=== PATIENT | female | born 1950 | race Caucasian/White ===

== ENCOUNTER → 2017-03-16 | Outpatient (CLI) | payer MEDICARE ==
--- NOTE | 2017-03-18 14:07 | XR ---
EXAMINATION TYPE: XR knee complete bilateral DATE OF EXAM: 03/16/2017 11:21 AM COMPARISON: NONE HISTORY: Chronic pain TECHNIQUE: Four views are submitted. FINDINGS: Severe neck narrowing of the medial compartment and patellofemoral compartment of the left knee. No e rosive changes. No acute fracture or dislocation. There is moderate to severe narrowing the medial compartment and patellofemoral compartment of the ri ght knee. No erosive changes. Osseous structures intact. IMPRESSION: 1. Severe bilateral osteoarthritis.
== END | disposition home or self-care (01) ==
LOC: RADXRYALE 10:15
PROVIDERS: ATTEND Family Medicine
DX: M17.0 Bilateral primary osteoarthritis of knee (principal)

== ENCOUNTER → 2017-05-20 | Outpatient (CLI) | payer MEDICARE ==
--- NOTE | 2017-05-20 13:10 | MM ---
Reason for exam: screening (asymptomatic). Last mammogram was performed 1 year ago. History: Patient is postmenopausal and has history of breast cancer at age 61. Family history of breast cancer in paternal grandmother and breast cancer in maternal cousin. Malignant left breast needle localization of the left breast, June 30, 2011. Malignant left mammotome panel of the left breast, June 17, 2011. Radiation therapy of the left breast, 2010. Benign stereotactic core biopsy of the left breast, February 29, 2004. Core biopsy of the left breast. Took estrogen for 5 years beginning at age 36. Physical Findings: A clinical breast exam by your physician is recommended on an annual basis and results should be correlated with mammographic findings. MG 3D Diag Mammo W/Cad CHANDA Bilateral CC and MLO view(s) were taken. LM and XCCL view(s) were taken of the left breast. Prior study comparison: May 19, 2016, bilateral MG diagnostic mammo w CAD CHANDA. May 16, 2015, bilateral MG diagnostic mammo w CAD CHANDA. Previous mammotome biopsy in the left breast. Post surgical distortion in the left breast. No significant new findings when compared with previous films. These results were verbally communicated with the patient and result sheet given to the patient on 05/20/17. ASSESSMENT: Benign, BI-RAD 2 RECOMMENDATION: Routine screening mammogram of both breasts in 1 year. Manage patient on a clinical basis.
== END | disposition home or self-care (01) ==
LOC: RADMAMWWP 10:51
PROVIDERS: ATTEND Surgery
DX: Z08 Encounter for follow-up examination after completed treatment for malignant neoplasm (principal); Z85.3 Personal history of malignant neoplasm of breast
CPT/HCPCS: G0204; G0279

== ENCOUNTER → 2017-07-01 | Outpatient (CLI) | payer MEDICARE ==
--- NOTE | 2017-07-01 13:01 | CT ---
EXAMINATION TYPE: CT ChestAbdPelvis w con DATE OF EXAM: 07/01/2017 COMPARISON: NONE HISTORY: breast ca CT DLP: 2083 mGycm. Automated Exposure Control for Dose Reduction was Utilized. CONTRAST: CT scan of the thorax, abdomen and pelvis is performed with IV Contrast, patient injected with 80 mL of Visipaque 320. FINDINGS: LUNGS: Scarlike opacity in the lingula measuring 11 x 5 mm favors postinflammatory scar related to [facility] cancer treatment. A few scattered micronodules are felt present, for reference 3 mm nodule pos terior lateral right lung base on axial image 52. For reference there is 4 mm nodule right lower lobe on axial image 45. No definitive greater than 5 mm parenchymal nodules or masses are present bilater ally. There is no pleural effusion or pneumothorax seen. The tracheobronchial tree is patent. MEDIASTINUM: There are no greater than 1 cm hilar or mediastinal lymph nodes. No cardiomegaly or pe ricardial effusion is seen. There are 2 small subcentimeter rim calcified nodules in the right thyro id isthmus. OTHER: Postsurgical change to left breast is present with oval thin-walled fluid collection favoring seroma measuring 3.8 cm on long axis on coronal image 37. Artifact related to patient's body habitus is noted over the lower abdomen and pelvis. LIVER/GB: Gallbladder is surgically absent. PANCREAS: No significant abnormality is seen. SPLEEN: Some splenules are seen in splenic hilum. ADRENALS: No significant abnormality is seen. KIDNEYS: Some cortical thinning in both kidneys is seen consistent with product of chronic medical re nal disease. BOWEL: Some diverticula are seen in the sigmoid colon. There is no convincing CT evidence for acute d iverticulitis. GENITAL ORGANS: Uterus is surgically absent or markedly atrophic in appearance. LYMPH NODES: No greater than 1cm abdominal or pelvic lymph nodes are appreciated. OSSEOUS STRUCTURES: There is some multilevel spurring in the thoracic spine. There is disc space narr owing with vacuum disc phenomenon lumbosacral junction. Facet arthropathy lower lumbar levels is seen . OTHER: No significant additional abnormality is seen. IMPRESSION: No convincing evidence of residual or metastatic malignancy. Scattered pulmonary micronod ules noted bilaterally measuring up to 4 mm in size can be followed to definitively exclude.
--- NOTE | 2017-07-01 15:45 | NM ---
EXAMINATION TYPE: NM bone scan whole body DATE OF EXAM: 07/01/2017 COMPARISON: CT scan 07/01/2017 HISTORY: Breast cancer Delayed whole-body scanning was performed following the injection of 26.8 mCi Tc 99m MDP. Images acq uired 3.5 hours post injection. FINDINGS: Abnormal uptake involving the feet, knees, shoulders suggestive of post arthritic changes. Areas of abnormal uptake involving the thoracic spine appears to be mild intensity likely degenerativ e. Abnormal uptake involving the sternoclavicular joints appears post arthritic. IMPRESSION: No diagnostic evidence of metastases.
== END | disposition home or self-care (01) ==
LOC: RADNMMAIN 10:35
PROVIDERS: ATTEND Internal Medicine Hematology & Oncology
DX: C50.012 Malignant neoplasm of nipple and areola, left female breast (principal); R91.8 Other nonspecific abnormal finding of lung field
CPT/HCPCS: 82565; 84520; 71260; 74177; 36415; 78306; A9503; Q9967

== ENCOUNTER → 2018-03-17 | Outpatient (CLI) | payer MEDICARE ==
--- NOTE | 2018-03-17 12:54 | CT ---
EXAMINATION TYPE: CT ChestAbdPelvis wo con DATE OF EXAM: 03/17/2018 INDICATION: Follow up breast cancer COMPARISON: 07/01/2017 CT DLP: 2136.4 mGycm CONTRAST: Performed with Oral Contrast. Patient's laboratory results were abnormal and intravenous contrast was not utilized. TECHNIQUE: Axial images at 5 mm thick sections. Reconstructed images in the coronal plane. Delayed images through the kidneys. FINDINGS: CT CHEST: Portion of the thyroid visualized is normal. Some minimal streak atelectasis is within the lingula. This could be postradiation treatment. Couple of punctate densities measuring 0.2-0.3 cm within the anterior right middle lobe. Series 4 image 35. There may be some subtle tiny scattered nodules within the periphery of the lungs bilaterally. Findin gs were present previously. No enlarged mediastinal or hilar adenopathy is evident. The ascending aorta diameter at the level of the main pulmonary artery is 3.2 cm. The main pulmonary artery diameter at the bifurcation is 2.7 cm. A small hiatal hernia is present. Postsurgical changes within the left breast and a seroma are presen t. CT ABDOMEN: Liver: Normal Spleen: Normal Pancreas: Normal Adrenal glands: The adrenal glands are normal. Gallbladder: Normal Kidneys: No masses are evident. No hydronephrosis is present. No cysts are present. Delayed images were obtained through the kidneys, which remain unremarkable. Aorta: Vascular calcification is within the aorta. Inferior vena cava: Normal. CT PELVIS: Loops of bowel within the abdomen and pelvis are normal. There are loops of bowel which are incom pletely distended or lack oral contrast limiting their evaluation. A few scattered diverticuli are pr esent Appendix: Not visualized. Clinical management is recommended. Urinary bladder: Normal. Genitourinary structures: Uterus and ovaries are not identified. Osseous structures: No suspicious lytic or sclerotic lesions. IMPRESSIONS: 1. Tiny nodules present previously and appears stable. 2. No suspicious changes to suggest metastatic disease. 3. Mild diverticulosis without acute diverticulitis. 4. Small hiatal hernia. 5. Postsurgical changes left breast
--- NOTE | 2018-03-17 14:43 | NM ---
EXAMINATION TYPE: NM bone scan whole body DATE OF EXAM: 03/17/2018 COMPARISON: Prior nuclear medicine exam 07/01/2017, CT scan 03/17/2018 HISTORY: Breast carcinoma Delayed whole-body scanning was performed following the injection of 25.0 mCi Tc 99m MDP. Images acq uired 4 hours post injection. FINDINGS: The appearance is similar to prior exam. Soft tissue uptake in the legs may be due to chronic venous stasis change or cellulitis. Degenerative changes are again seen throughout the skeleton. No areas of abnormal increased or decreased reaffirms aquatic to suggest metastasis. IMPRESSION: Stable exam. Metastatic disease is not evident.
== END | disposition home or self-care (01) ==
LOC: RADNMMAIN 09:32
PROVIDERS: ATTEND Internal Medicine Hematology & Oncology
DX: C50.012 Malignant neoplasm of nipple and areola, left female breast (principal); K57.90 Diverticulosis of intestine, part unspecified, without perforation or abscess without bleeding; K44.9 Diaphragmatic hernia without obstruction or gangrene; Z88.2 Allergy status to sulfonamides; Z98.890 Other specified postprocedural states
CPT/HCPCS: 82565; 84520; 71250; 74176; 36415; 78306; A9503

== ENCOUNTER → 2018-06-15 | Outpatient (CLI) | payer MEDICARE ==
--- NOTE | 2018-06-15 15:18 | USB ---
Reason for exam: clinical finding. History: Patient is postmenopausal and has history of breast cancer at age 61. Family history of breast cancer in paternal grandmother and breast cancer in maternal cousin. Malignant left breast needle localization of the left breast, June 30, 2011. Malignant left mammotome panel of the left breast, June 17, 2011. Radiation therapy of the left breast, 2010. Benign stereotactic core biopsy of the left breast, February 29, 2004. Core biopsy of the left breast. Took estrogen for 5 years beginning at age 36. Indicated problem(s): palpable abnormality and lump or thickening in the left breast. Physical Findings: Nurse Summary: raised rash on left inner quadrant (nurse dw). US Breast LT Left complete breast ultrasound includes all four quadrants, the retroareolar region and axilla. Finding demonstrates a hypoechoic lesion within area of scar at 3 o'clock and a 1.3 x 0.5 x 0.4cm hypoechoic lesion at 4 o'clock, taller than wide, suspicious. Recurrance at scar versus only scar tissue cannot be differentiated on this ultrasound. These results were verbally communicated with the patient and result sheet given to the patient on 06/15/18. ASSESSMENT: Suspicious, BI-RAD 4 RECOMMENDATION: Ultrasound core biopsy of the left breast. (consider biopsy at 4 o'clock) Manage on a clinical basis with regard to scar, consider MRI. Called Dr. Sawant's office with mammographic findings and office will call patient when Dr. Sawant is back in the office next week. PRELIMINARY REPORT CALLED AND FAXED TO DR. SAWANT ON 06/15/18.
== END | disposition home or self-care (01) ==
LOC: RADUSWWP 13:59
PROVIDERS: ATTEND Internal Medicine Hematology & Oncology
DX: N64.52 Nipple discharge (principal); N63.20 Unspecified lump in the left breast, unspecified quadrant; Z85.3 Personal history of malignant neoplasm of breast

== ENCOUNTER → 2018-06-23 | Outpatient (CLI) | payer MEDICARE ==
--- NOTE | 2018-06-23 14:02 | MM ---
Reason for exam: additional evaluation requested from prior study. Last mammogram was performed 1 year and 1 month ago. History: Patient is postmenopausal and has history of breast cancer at age 61. Family history of breast cancer in paternal grandmother and breast cancer in maternal cousin. Malignant left breast needle localization of the left breast, June 30, 2011. Malignant left mammotome panel of the left breast, June 17, 2011. Radiation therapy of the left breast, 2010. Benign stereotactic core biopsy of the left breast, February 29, 2004. Core biopsy of the left breast. Took estrogen for 5 years beginning at age 36. Physical Findings: Nurse did not find any significant physical abnormalities on exam. MG 3D Diag Mammo W/Cad CHANDA Bilateral CC and MLO view(s) were taken. Prior study comparison: May 20, 2017, bilateral MG 3d diag mammo w/cad CHANDA. May 19, 2016, bilateral MG diagnostic mammo w CAD CHANDA. The breast tissue is heterogeneously dense. This may lower the sensitivity of mammography. Finding: There is a suspicious high spiculated 27 x 41 mm architectural distortion in the posterior position of the left breast on MLO view. Previous mammotome biopsy in the left breast. These results were verbally communicated with the patient and result sheet given to the patient on 06/23/18. ASSESSMENT: Suspicious, BI-RAD 4 RECOMMENDATION: Ultrasound core biopsy of the left breast. (4 o'clock) Called Dr. Castorena with mammographic findings and has scheduled an appointment for the patient for 06/27/18 at 10:00 with [facility]. PRELIMINARY REPORT CALLED AND FAXED TO DR. RUIZ ON 06/23/18. Breast MRI of the left breast. (consider)
== END | disposition home or self-care (01) ==
LOC: RADMAMWWP 08:57
PROVIDERS: ATTEND Family Medicine
DX: N63.0 Unspecified lump in unspecified breast (principal); Z85.3 Personal history of malignant neoplasm of breast
CPT/HCPCS: 77066; G0279; 77062

== ENCOUNTER 2018-10-10 12:30 | Inpatient (IN) | payer MEDICARE ==
[2018-10-11] MEDS ORDERED: ALBUTEROL NEBULIZED 2.5 MG/3 ML INHALATION PRN (11:31)
[2018-10-11] MEDS ORDERED: VANCOMYCIN IV PER PHARMACY 1 EACH MISC MISCELLANE PRN (11:41)
[2018-10-11] MEDS ORDERED: ATORVASTATIN 20 MG TAB PO SCH (11:45)
--- NOTE | 2018-10-11 11:52 | P.CONS ---
History of Present Illness - Reason for Consult Consult date: 10/11/18 Recurrent Metastatic Breast cancer, On Chemotherapy Requesting physician: Rhonda Whitten - Chief Complaint Cellulitis of Breast - History of Present Illness Ms. Shirley is a patient of primary Oncologist Dr. Gan for treatment and management of her recurrent Breast cancer. She is currently on treatment with Ibrance and Faslodex. She was seen in office yesterday for follow-up and was noted to have evidence of significant cellulitis and left chest wall infection, purulent drainage, low grade fevers, and reactive tachycardia. He therefore has asked for medical management to directly admit patient to hospital for further assessment, managment and IV antibiotics. Wound cultures have been ordered, baseline labs, home medications reconciled, Infectious disease has been consulted, and initial broad spectrum antibiotics intiated. Review of Systems A 14 point review of systems assessed and completed and all negative except HPI. Past Medical History Past Medical History: Asthma, Diabetes Mellitus, Hypertension History of Any Multi-Drug Resistant Organisms: None Reported Past Surgical History: Cholecystectomy, Hysterectomy Additional Past Surgical History / Comment(s): lumpectomy left breast, cancer. also had op surgery for deviated septum, right nare has mild problems. Past Anesthesia/Blood Transfusion Reactions: No Reported Reaction Past Psychological History: No Psychological Hx Reported Smoking Status: Never smoker Past Alcohol Use History: None Reported Past Drug Use History: None Reported Medications and Allergies Home Medications Medication Instructions Recorded Confirmed Type Albuterol Sulfate [Ventolin HFA] 1 - 2 puff INHALATION RT-Q6H PRN 04/08/1410/11 History Cholecalciferol [Vitamin D3] 1,000 unit PO W/LUNCH 04/08/14 10/11/18 History Famotidine [Pepcid] 20 mg PO DAILY 04/08/14 10/11/18 History Multivitamins, Thera [Multivitamin] 1 tab PO W/LUNCH 04/08/14 10/11/18 History metFORMIN HCL 500 mg PO BID 04/08/14 10/11/18 History Apixaban [Eliquis] 5 mg PO BID 10/11/18 10/11/18 History Atorvastatin [Lipitor] 20 mg PO SUTUTHFRSA 10/11/18 10/11/18 History Beclomethasone Dipropionate [Qvar 1 puff INHALATION RT-BID 10/11/18 10/11/18 History 40 mcg Redihaler] Citalopram Hydrobromide [CeleXA] 20 mg PO HS 10/11/18 10/11/18 History Levothyroxine Sodium [Synthroid] 50 mcg PO DAILY 10/11/18 10/11/18 History Lisinopril [Zestril] 20 mg PO HS 10/11/18 10/11/18 History Vitamin E (Dl,Tocopheryl Acet) 400 unit PO W/LUNCH 10/11/18 10/11/18 History [Vitamin E] Allergies Allergy/AdvReac Type Severity Reaction Status Date / Time sulfamethoxazole Allergy Intermediate Rash/Hives Verified 10/11/18 09:56 [From Bactrim] trimethoprim [From Bactrim] Allergy Intermediate Rash/Hives Verified 10/11/18 09 :56 ciprofloxacin [From Cipro] AdvReac CONSTIPATIO Verified 10/11/18 09:56 N Physical Exam Vitals: Vital Signs Temp Pulse Resp BP Pulse Ox 10/11/18 11:02 98.1 F 74 14 114/59 100 Intake and Output 10/10/18 10/11/18 10/11/18 22:59 06:59 14:59 Other: Voiding Method Toilet Weight 129.727 kg - Constitutional General appearance: average body habitus, cooperative, no acute distress - EENT Eyes: EOMI, dentition normal ENT: NA/AT, normal oropharynx - Neck supple, trachea midline, no cervical adenopathy Neck: normal ROM - Respiratory Respiratory: bilateral: diminished, wheezing (expiratory, mild increased effort) - Cardiovascular Rhythm: regular Heart sounds: normal: S1, S2 - Gastrointestinal General gastrointestinal: normal bowel sounds, soft, tenderness - Integumentary Chest wall Cellulitis with two open areas on breast with purulent drainage Integumentary: pale - Neurologic No focal Defects Neurologic: CNII-XII intact - Musculoskeletal Musculoskeletal: gait normal, generalized weakness, strength equal bilaterally - Psychiatric Psychiatric: A&O x's 3, appropriate affect, intact judgment & insight Assessment and Plan Plan: Assessment and Recommendations: 1. Recurrent Breast cancer on Ibrance and Faslodex: - Ibrance on Hold until after resolution of acute Hospitalization for Left chest Wall Cellulitis 2. Left chest Wall Cellulitis and open Wound: - Culture to be obtained from open wound - Iv Antibiotics to be iniated after culture obtained - Dr. Herbert From Infectious Disease to Consult for Evaluation and Management 3. 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 HX: Atrial Fibrillation: On Eliquis Home Midication Resumed DVT )on eliquis) and GI Prophylaxis ordered Medical Managment to Admit please per Dr. Elvia Marcelino BOOK [employer] S[employer] EDITOR
[2018-10-11] MEDS ORDERED: VANCOMYCIN 2,000 MG in SODIUM CHLORIDE 0.9% 500 ML 500 ML IVPB ONE (12:00)
[2018-10-11 12:13] LABS: Anisocytosis Slight; Basophils % (A) 1 %; Eosinophils % (A) 1 %; HCT 23.3 % (34.0-46.0); HGB 7.7 gm/dL (11.4-16.0); Lymphocytes # (A) 0.6 k/uL (1.0-4.8); Lymphocytes % (A) 18 %; MCH 34.5 pg (25.0-35.0); MCHC 33.2 g/dL (31.0-37.0); MCV 103.8 fL (80.0-100.0); Macrocytosis Moderate; Mean Platelet Volume 6.9; Monocytes # (A) 0.2 k/uL (0-1.0); Monocytes % (A) 4 %; Neutrophils # (A) 2.5 k/uL (1.3-7.7); Neutrophils % (A) 73 %; Platelet Count 428 k/uL (150-450); RBC 2.24 m/uL (3.80-5.40); RDW 16.2 % (11.5-15.5); WBC 3.4 k/uL (3.8-10.6)
[2018-10-11 13:04] LABS: Albumin 3.1 g/dL (3.5-5.0); Calcium 8.7 mg/dL (8.4-10.2); Magnesium 1.7 mg/dL (1.6-2.3); Potassium 4.6 mmol/L (3.5-5.1); Total Bilirubin 0.3 mg/dL (0.2-1.3); Total Protein 6.1 g/dL (6.3-8.2)
--- NOTE | 2018-10-11 13:08 | P.GSCN ---
History of Present Illness Consult date: 10/11/18 Reason for Consult: Infection left chest wall Requesting physician: Raoul Delcid History of present illness: The patient is a 68-year-old white female who underwent a limited left the mastectomy for recurrent malignancy of the left breast. He had had a lumpectomy the patient treatment and axillary node biopsy about 7-8 years ago. She developed diffuse lymphatic cutaneous metastatic disease involving the entire chest wall for which he received chemotherapy with the Marcaine improvement. She showed evidence on recent mammography to have a large tumor mass in the retroareolar region indicating recurrent malignancy confirmed on biopsy. Therefore left the palliative simple mastectomy was performed this being very difficult because of her obesity and the radiation treatment. She developed poor healing on the lateral aspect of the scar with intermittent serosanguineous drainage. When I saw her about 10 days ago in the office she had evidence of some mild cellulitis at the drainage site on the lateral aspect of the scar which was placed on Cipro twice a day. However after 1 or 2 doses she got constipated and she discontinued it unfortunately did not call the office for replacement the antibiotic. The cellulitis progressively worsened. She was seen by Dr. Gan yesterday and was admitted for further management. Apparently the drainage has been intermittently CO purulent in nature. She states she's had some chills. Past history family history social history well-documented on recent admission for her mastectomy. Has multiple medical issues including diabetes and obesity. On examination the patient is in no acute distress. Temperature is normal. Markedly overweight. Has a fair amount of induration at her mastectomy scar but no fluctuance or evidence of an abscess. Has open area about a centimeter on the lateral aspect of her mastectomy scar with a fair amount of induration and puckering of the skin and subcutaneous tissues. No gross abscess is noted but she has some mild cellulitis. Mild edema. Labs are pending. Impression cellulitis left mastectomy scar. Metastatic left breast cancer with recent recurrence. Multiple medical issues. Obesity. Recommendation. Agree with IV antibiotics. Mostly monitor. Hopefully will not need surgical drainage. Past Medical History Past Medical History: Asthma, Diabetes Mellitus, Hypertension Additional Past Medical History / Comment(s): 2010 L breast cancer with lumpectomy and radiation, August 2018 L breast cancer with mastectomy and oral chemo-wound never healed completely, recent constipation, diverticular disease, Afib RVR, NIDDM type II, CKD, bronchitis, lower extremity edema, artritis multiple joints. History of Any Multi-Drug Resistant Organisms: None Reported Past Surgical History: Cholecystectomy, Hysterectomy Additional Past Surgical History / Comment(s): lumpectomy left breast, cancer. also had op surgery for deviated septum, right nare has mild problems. Past Anesthesia/Blood Transfusion Reactions: No Reported Reaction Past Psychological History: No Psychological Hx Reported Smoking Status: Never smoker Past Alcohol Use History: None Reported Past Drug Use History: None Reported - Past Family History Father Family Medical History: Rheumatoid Arthritis (RA) Additional Family Medical History / Comment(s): Father at the age of 68yrs from a bleeding ulcer. Mother Family Medical History: Congestive Heart Failure (CHF) Additional Family Medical History / Comment(s): Mother at the age of 79yrs from CHF. Medications and Allergies Home Medications Medication Instructions Recorded Confirmed Type Albuterol Sulfate [Ventolin HFA] 1 - 2 puff INHALATION RT-Q6H PRN 04/08/1410/11 History Cholecalciferol [Vitamin D3] 1,000 unit PO W/LUNCH 04/08/14 10/11/18 History Famotidine [Pepcid] 20 mg PO DAILY 04/08/14 10/11/18 History Multivitamins, Thera [Multivitamin] 1 tab PO W/LUNCH 04/08/14 10/11/18 History metFORMIN HCL 500 mg PO BID 04/08/14 10/11/18 History Apixaban [Eliquis] 5 mg PO BID 10/11/18 10/11/18 History Atorvastatin [Lipitor] 20 mg PO SUTUTHFRSA 10/11/18 10/11/18 History Beclomethasone Dipropionate [Qvar 1 puff INHALATION RT-BID 10/11/18 10/11/18 History 40 mcg Redihaler] Citalopram Hydrobromide [CeleXA] 20 mg PO HS 10/11/18 10/11/18 History Levothyroxine Sodium [Synthroid] 50 mcg PO DAILY 10/11/18 10/11/18 History Lisinopril [Zestril] 20 mg PO HS 10/11/18 10/11/18 History Vitamin E (Dl,Tocopheryl Acet) 400 unit PO W/LUNCH 10/11/18 10/11/18 History [Vitamin E] Allergies Allergy/AdvReac Type Severity Reaction Status Date / Time sulfamethoxazole Allergy Intermediate Rash/Hives Verified 10/11/18 09:56 [From Bactrim] trimethoprim [From Bactrim] Allergy Intermediate Rash/Hives Verified 10/11/18 09 :56 ciprofloxacin [From Cipro] AdvReac CONSTIPATIO Verified 10/11/18 09:56 N Surgical - Exam Vital Signs Temp Pulse Resp BP Pulse Ox 98.1 F 74 14 114/59 100 10/11/18 11:02 10/11/18 11:02 10/11/18 11:02 10/11/18 11:02 10/11/18 11:02 Results - Labs 10/11/18 11:57 10/11/18 11:57 Abnormal Lab Results - Last 24 Hours (Table) 10/11/18 10/11/18 Range/Units 11:57 11:57 WBC 3.4 L (3.8-10.6) k/uL RBC 2.24 L (3.80-5.40) m/uL Hgb 7.7 L (11.4-16.0) gm/dL Hct 23.3 L (34.0-46.0) % MCV 103.8 H (80.0-100.0) fL RDW 16.2 H (11.5-15.5) % Lymphocytes # 0.6 L (1.0-4.8) k/uL Sodium 135 L (137-145) mmol/L BUN 27 H (7-17) mg/dL Creatinine 1.54 H (0.52-1.04) mg/dL Total Protein 6.1 L (6.3-8.2) g/dL Albumin 3.1 L (3.5-5.0) g/dL Diabetes panel 10/11/18 Range/Units 11:57 Sodium 135 L (137-145) mmol/L Potassium 4.6 (3.5-5.1) mmol/L Chloride 102 (98-107) mmol/L Carbon Dioxide 24 (22-30) mmol/L BUN 27 H (7-17) mg/dL Creatinine 1.54 H (0.52-1.04) mg/dL Glucose 98 (74-99) mg/dL Calcium 8.7 (8.4-10.2) mg/dL AST 20 (14-36) U/L ALT 29 (9-52) U/L Alkaline Phosphatase 125 (38-126) U/L Total Protein 6.1 L (6.3-8.2) g/dL Albumin 3.1 L (3.5-5.0) g/dL Calcium panel 10/11/18 Range/Units 11:57 Calcium 8.7 (8.4-10.2) mg/dL Albumin 3.1 L (3.5-5.0) g/dL Pituitary panel 10/11/18 Range/Units 11:57 Sodium 135 L (137-145) mmol/L Potassium 4.6 (3.5-5.1) mmol/L Chloride 102 (98-107) mmol/L Carbon Dioxide 24 (22-30) mmol/L BUN 27 H (7-17) mg/dL Creatinine 1.54 H (0.52-1.04) mg/dL Glucose 98 (74-99) mg/dL Calcium 8.7 (8.4-10.2) mg/dL Adrenal panel 10/11/18 Range/Units 11:57 Sodium 135 L (137-145) mmol/L Potassium 4.6 (3.5-5.1) mmol/L Chloride 102 (98-107) mmol/L Carbon Dioxide 24 (22-30) mmol/L BUN 27 H (7-17) mg/dL Creatinine 1.54 H (0.52-1.04) mg/dL Glucose 98 (74-99) mg/dL Calcium 8.7 (8.4-10.2) mg/dL Total Bilirubin 0.3 (0.2-1.3) mg/dL AST 20 (14-36) U/L ALT 29 (9-52) U/L Alkaline Phosphatase 125 (38-126) U/L Total Protein 6.1 L (6.3-8.2) g/dL Albumin 3.1 L (3.5-5.0) g/dL
[2018-10-11] MEDS: LEVOTHYROXINE 50 MCG TAB PO SCH (13:25)
[2018-10-11] MEDS: APIXABAN 5 MG TAB PO SCH ×2 (13:25→20:33)
[2018-10-11] MEDS: FAMOTIDINE 20 MG TAB PO SCH (13:26)
[2018-10-11] MEDS: VITAMIN E (DL,TOCOPHERYL ACET) 400 UNIT CAP PO SCH (13:38)
[2018-10-11] MEDS: MULTIVITAMINS, THERA 1 EACH TAB PO SCH (13:39)
[2018-10-11] MEDS: CHOLECALCIFEROL 1,000 UNIT TAB PO SCH (13:39)
[2018-10-11] MEDS ORDERED: ALPRAZolam 0.25 MG TAB PO PRN (17:13)
[2018-10-11] MEDS ORDERED: TEMAZEPAM 15 MG CAP PO PRN (17:13)
[2018-10-11] MEDS: CEFEPIME 2 GM in SODIUM CHLORIDE 0.9% 50 ML IVPB SCH (17:50)
[2018-10-11 17:55] LABS: Glucose,Whole Blood 112 mg/dL (75-99)
[2018-10-11] MEDS: INSULIN ASPART 100 UNIT/ML 1 ML 10 ML VIAL SQ SCH ×2 (17:55→20:32)
[2018-10-11] MEDS: metFORMIN 500 MG TAB PO SCH (17:56)
--- NOTE | 2018-10-11 17:58 | HP ---
HISTORY AND PHYSICAL DATE OF SERVICE: 10/11/2018 CHIEF COMPLAINTS: Pain and swelling of the left breast surgery area. HISTORY OF PRESENT ILLNESS: This 68-year-old woman with a past medical history of asthma, diabetes mellitus, hypertension, cholecystectomy, history of paroxysmal atrial fibrillation, being followed by Dr. Christofer Castorena in the outpatient setting, recently had a left mastectomy by Dr. Delcid for tumor recurrence. The patient previously had chemoradiation. Apparently the patient had cellulitis. Patient apparently was admitted to take Cipro, which the patient discontinued after 2 days because of constipation. Dr. Gan evaluated the patient and recommended the patient as a direct admission. There is no history of any fever, rigor or chills. No history of headache, loss of consciousness, seizures at this time. PAST MEDICAL HISTORY: 1. Asthma. 2. Diabetes mellitus. 3. Hypertension. 4. History of breast cancer. 5. Lumpectomy. 6. History of paroxysmal atrial fibrillation. HOME MEDICATIONS: 1. Albuterol 1-2 puffs q.6 p.r.n. 2. Qvar 40 mcg b.i.d. 3. Pepcid 20 mg daily. 4. Vitamin D3 1000 with lunch. 5. Vitamin E 400 units with lunch. 6. Lipitor 20 mg p.o. Wednesday, Wednesday, , Wednesday. 7. Celexa 20 mg p.o. at bedtime. 8. Zestril 20 mg p.o. at bedtime. 9. Multivitamins 1 p.o. daily. 10.Metformin 500 mg p.o. b.i.d. 11.Levothyroxine 50 mcg p.o. daily. 12.Eliquis 5 mg p.o. b.i.d. ALLERGIES: BACTRIM AND CIPRO. FAMILY HISTORY: History of rheumatoid arthritis in the family. SOCIAL HISTORY: No history of smoking. No history of alcohol intake. REVIEW OF SYSTEMS: ENT: No diminished hearing. No diminished vision. CARDIOVASCULAR SYSTEM: No angina, palpitations. RESPIRATORY SYSTEM: As mentioned earlier. GI: No nausea, vomiting. : No dysuria or retention. NERVOUS SYSTEM: No numbness, weakness. ALLERGY/IMMUNOLOGY: No asthma, hayfever. MUSCULOSKELETAL: As mentioned earlier. HEMATOLOGY/ONCOLOGY: As mentioned earlier. ENDOCRINE: As mentioned earlier. CONSTITUTIONAL: As mentioned earlier. DERMATOLOGY: As mentioned earlier. RHEUMATOLOGY: Negative. PSYCHIATRY: As mentioned earlier. PHYSICAL EXAMINATION: Patient is alert and oriented x3. Pulse 75, blood pressure 99/55, respiration 22, temperature 97 degrees, pulse ox 100% on room air. HEENT: Conjunctivae normal. Oral mucosa moist. NECK: No jugular venous distention. No carotid bruit. No lymph node enlargement. CARDIOVASCULAR SYSTEM: S1, S2 muffled. No S3. No S4. RESPIRATORY SYSTEM: Breath sounds diminished at the bases. A few scattered rhonchi. No crackles. ABDOMEN: Soft, nontender. No mass palpable. LEGS: No edema. No swelling. NERVOUS SYSTEM: Higher functions as mentioned earlier. Moves all 4 limbs. No focal motor or sensory deficit. LYMPHATICS: No lymph node palpable in neck, axillae or groin. EXAMINATION OF THE LEFT BREAST: Significant erythema, cellulitis present. JOINTS: No active deforming arthropathy. LABS: WBC 3.4, hemoglobin 7.7, MCV 103.8. Sodium 135, creatinine 1.54. ASSESSMENT: 1. Acute cellulitis of the left breast. 2. History of recent left mastectomy. 3. Recurrent breast cancer. 4. Leukopenia and anemia bicytopenia. 5. Increased mean corpuscular volume. 6. Hyponatremia. 7. Increased creatinine with chronic kidney disease, stage III. 8. History of asthma. 9. Diabetes mellitus. 10.History hypertension. 11.History of constipation. 12.History of paroxysmal atrial fibrillation. 13.History of bronchitis. 14.History of DJD. 15.History of cholecystectomy. 16.Obesity with body mass index of 43.5. RECOMMENDATIONS AND DISCUSSION: In this 68-year-old woman who presented with multiple complex medical issues, at this time I recommend to continue current medication, continue with symptomatic treatment. Patient is already started on Maxipime. Will continue to monitor the cultures. Continue the rest of medication, DVT prophylaxis. Patient is on apixaban. Also recommend Accu-Cheks before meals and at bedtime and continue to monitor as well for better control. Otherwise, we will follow the patient closely and discuss with Dr. Delcid and Hematology/Oncology. Guarded prognosis because of multiple complex medical issues. Further recommendations to follow. MMODL / IJN: [id number] /
[2018-10-11 19:54] LABS: Glucose,Whole Blood 117 mg/dL (75-99)
[2018-10-11] MEDS: BECLOMETHASONE DIPROPIONATE INHALATION SCH (20:30)
[2018-10-11] MEDS: LISINOPRIL 20 MG TAB PO SCH (20:33)
[2018-10-11] MEDS: CITALOPRAM HYDROBROMIDE 20 MG TAB PO SCH (20:33)
[2018-10-11] MEDS: ATORVASTATIN 20 MG TAB PO SCH (20:33)
[2018-10-12] MEDS: CEFEPIME 2 GM in SODIUM CHLORIDE 0.9% 50 ML IVPB SCH ×3 (00:36→21:32)
--- NOTE | 2018-10-12 00:53 | P.CONS ---
History of Present Illness - Reason for Consult Consult date: 10/11/18 - Chief Complaint Chest wall cellulitis - History of Present Illness 68-year-old female who has a history of known recurrent breast carcinoma, because of this she is currently be treated with Ibrance and Faslodex. It is related the patient is started having increasing difficulties of pain and discomfort to her left anterior chest wall at the prior mastectomy site. She has developed some ulceration, erythema, some drainage and discomfort. She also started to feel somewhat poorly overall and calcium was admitted to hospital for further intervention including wound care and antibiotic therapy. She was seen by her surgeon. No plans for surgical intervention at this time. Oncology is also following. Review of Systems Patient feeling poorly but has worsened over the last few days. HEENT:Denies headache or acute visual change. Denies sinus or mouth discomforts. Denies neck stiffness or pain. Denies significant oral cavity pain. Denies difficulty on swallowing. Lungs: Denies significant shortness of breath, cough, sputum production, or hemoptysis. Cardiovascular: Denies significant shortness of breath, chest pain, chest wall pain, orthopnea, dyspnea on exertion, syncope Gastrointestinal:Denies nausea, vomiting, diarrhea, constipation, hematemesis, melena, hematochezia. No no significant change of bowel habit noticed. Musculoskeletal: denies significant myalgias or arthralgias. No new joint swelling. Denies new back pain. Skin: As per the HPI increasing redness ulceration and discomfort to the left anterior chest wall at the mastectomy site Neuro: Denies headache or visual change. Denies any new onset weakness or difficulty with ambulation. Denies falls or seizures. Psychiatric:Denies anxiety or depression. Endocrine: Markedly decreased energy level with increasing fatigue weight is stable Past Medical History Past Medical History: Asthma, Diabetes Mellitus, Hypertension Additional Past Medical History / Comment(s): 2010 L breast cancer with lumpectomy and radiation, August 2018 L breast cancer with mastectomy and oral chemo-wound never healed completely, recent constipation, diverticular disease, Afib RVR, NIDDM type II, CKD, bronchitis, lower extremity edema, artritis multiple joints. History of Any Multi-Drug Resistant Organisms: None Reported Past Surgical History: Cholecystectomy, Hysterectomy Additional Past Surgical History / Comment(s): lumpectomy left breast, cancer. also had op surgery for deviated septum, right nare has mild problems. Past Anesthesia/Blood Transfusion Reactions: No Reported Reaction Past Psychological History: No Psychological Hx Reported Additional Psychological History / Comment(s): . Retired. No experience. Most significant travel history. No smoking alcohol or recreational drug use. No animal exposures Smoking Status: Never smoker Past Alcohol Use History: None Reported Past Drug Use History: None Reported - Past Family History Father Family Medical History: Rheumatoid Arthritis (RA) Additional Family Medical History / Comment(s): Father at the age of 68yrs from a bleeding ulcer. Mother Family Medical History: Congestive Heart Failure (CHF) Additional Family Medical History / Comment(s): Mother at the age of 79yrs from CHF. Medications and Allergies Home Medications and Allergies Comment(s): Current Medications Albuterol Sulfate (Ventolin Nebulized) 2.5 mg INHALATION RT-Q6H PRN PRN Reason: Shortness Of Breath Alprazolam (Xanax) 0.25 mg PO TID PRN PRN Reason: Anxiety Apixaban (Eliquis) 5 mg PO BID [facility] Last Admin: 10/11/18 20:33 Dose: 5 mg Atorvastatin Calcium (Lipitor) 20 mg PO SuTuThFrSa@2100 [facility] Last Admin: 10/11/18 20:33 Dose: 20 mg Cholecalciferol (Vitamin D3) 1,000 unit PO W/LUNCH [facility] Last Admin: 10/11/18 13:39 Dose: 1,000 unit Citalopram Hydrobromide (Celexa) 20 mg PO HS [facility] Last Admin: 10/11/18 20:33 Dose: 20 mg Famotidine (Pepcid) 20 mg PO DAILY [facility] Last Admin: 10/11/18 13:26 Dose: Not Given Cefepime HCl 2 gm/ Sodium (Chloride) 50 mls @ 100 mls/hr IVPB Q8HR [facility] Stop: 10/12/18 01:00 Last Admin: 10/12/18 00:36 Dose: 100 mls/hr Vancomycin HCl 2,000 mg/ (Sodium Chloride) 500 mls @ 167 mls/hr IVPB Q24H [facility] Cefepime HCl 2 gm/ Sodium (Chloride) 50 mls @ 100 mls/hr IVPB Q12H [facility] Insulin Aspart (Novolog) 0 unit SQ ACHS [facility]; Protocol Last Admin: 10/11/18 20:32 Dose: Not Given Levothyroxine Sodium (Synthroid) 50 mcg PO DAILY@0630 [facility] Last Admin: 10/11/18 13:25 Dose: Not Given Lisinopril (Zestril) 20 mg PO HS [facility] Last Admin: 10/11/18 20:33 Dose: 20 mg Metformin HCl (Glucophage) 500 mg PO BID-W/MEALS [facility] Last Admin: 10/11/18 17:56 Dose: 500 mg Multivitamins (Theragran) 1 each PO W/LUNCH [facility] Last Admin: 10/11/18 13:39 Dose: 1 each Beclomethasone Dipropionate [Qvar 40 Mcg Redihaler] 1 puff INHALATION RT-BID [facility] Last Admin: 10/11/18 20:30 Dose: Not Given Temazepam (Restoril) 15 mg PO HS PRN PRN Reason: Insomnia Vitamin E (Vitamin E) 400 unit PO W/LUNCH [facility] Last Admin: 10/11/18 13:38 Dose: 400 unit Home Medications Medication Instructions Recorded Confirmed Type Albuterol Sulfate [Ventolin HFA] 1 - 2 puff INHALATION RT-Q6H PRN 04/08/1410/11 History Cholecalciferol [Vitamin D3] 1,000 unit PO W/LUNCH 04/08/14 10/11/18 History Famotidine [Pepcid] 20 mg PO DAILY 04/08/14 10/11/18 History Multivitamins, Thera [Multivitamin] 1 tab PO W/LUNCH 04/08/14 10/11/18 History metFORMIN HCL 500 mg PO BID 04/08/14 10/11/18 History Apixaban [Eliquis] 5 mg PO BID 10/11/18 10/11/18 History Atorvastatin [Lipitor] 20 mg PO SUTUTHFRSA 10/11/18 10/11/18 History Beclomethasone Dipropionate [Qvar 1 puff INHALATION RT-BID 10/11/18 10/11/18 History 40 mcg Redihaler] Citalopram Hydrobromide [CeleXA] 20 mg PO HS 10/11/18 10/11/18 History Levothyroxine Sodium [Synthroid] 50 mcg PO DAILY 10/11/18 10/11/18 History Lisinopril [Zestril] 20 mg PO HS 10/11/18 10/11/18 History Vitamin E (Dl,Tocopheryl Acet) 400 unit PO W/LUNCH 10/11/18 10/11/18 History [Vitamin E] Allergies Allergy/AdvReac Type Severity Reaction Status Date / Time sulfamethoxazole Allergy Intermediate Rash/Hives Verified 10/11/18 09:56 [From Bactrim] trimethoprim [From Bactrim] Allergy Intermediate Rash/Hives Verified 10/11/18 09 :56 ciprofloxacin [From Cipro] AdvReac CONSTIPATIO Verified 10/11/18 09:56 N Physical Exam Vitals: Vital Signs Temp Pulse Resp BP BP BP BP 10/11/18 20:48 98.1 F 80 16 10/11/18 20:28 116/56 98/48 123/57 120/58 10/11/18 12:10 97.0 F L 75 22 99/59 10/11/18 11:02 98.1 F 74 14 114/59 Pulse Ox 10/11/18 20:48 96 10/11/18 20:28 10/11/18 12:10 100 10/11/18 11:02 100 Intake and Output 10/11/18 10/11/18 10/12/18 14:59 22:59 06:59 Other: Voiding Method Toilet Toilet # Voids 2 Weight 129.727 kg 68-year-old female somewhat uncomfortable not in distress HEENT: Anicteric conjunctiva are pink and moist nasal mucosa grossly intact without significant lesions, there is no thrush. Worn dentition Neck: The neck is supple without significant lymphadenopathy or thyromegaly. Lungs: Good bilateral air entry without significant crackles or wheezing. There is no significant bronchial sounds. There is no egophony or dullness. Heart: Regular rate and rhythm with an audible S1-S2, no S3 no S4. There is no significant murmur click or rub, PMI was nondisplaced. Abdomen: Obese, Positive bowel sounds soft and nontender without palpable masses or organomegaly. There was no guarding or rebound. Extremities: The upper extremities have excellent pulses they are symmetric, no significant petechiae or telangiectasia. No splinter hemorrhages were noted. Lower extremities with only little edema no open ulceration seen Breast: With the nurse present the anterior chest valenzuela evaluated. There is evidence of the dense erythema over the prior surgical site of the mastectomy. Tissue is highly irregular and not smooth is evidence of ulceration the left axillary area as well as in the anterior chest wall. It is slightly tender to touch. Neuro: Awake alert oriented to person place and time. There are no acute new gross focal sensory motor deficits. Results CBC & Chem 7: 10/11/18 11:57 10/11/18 11:57 Labs: Abnormal Lab Results - Last 24 Hours (Table) 10/11/18 10/11/18 10/11/18 Range/Units 11:57 11:57 17:54 WBC 3.4 L (3.8-10.6) k/uL RBC 2.24 L (3.80-5.40) m/uL Hgb 7.7 L (11.4-16.0) gm/dL Hct 23.3 L (34.0-46.0) % MCV 103.8 H (80.0-100.0) fL RDW 16.2 H (11.5-15.5) % Lymphocytes # 0.6 L (1.0-4.8) k/uL Sodium 135 L (137-145) mmol/L BUN 27 H (7-17) mg/dL Creatinine 1.54 H (0.52-1.04) mg/dL POC Glucose (mg/dL) 112 H (75-99) mg/dL Total Protein 6.1 L (6.3-8.2) g/dL Albumin 3.1 L (3.5-5.0) g/dL 10/11/18 Range/Units 19:53 WBC (3.8-10.6) k/uL RBC (3.80-5.40) m/uL Hgb (11.4-16.0) gm/dL Hct (34.0-46.0) % MCV (80.0-100.0) fL RDW (11.5-15.5) % Lymphocytes # (1.0-4.8) k/uL Sodium (137-145) mmol/L BUN (7-17) mg/dL Creatinine (0.52-1.04) mg/dL POC Glucose (mg/dL) 117 H (75-99) mg/dL Total Protein (6.3-8.2) g/dL Albumin (3.5-5.0) g/dL Microbiology - Last 24 Hours (Table) 10/11/18 11:40 Gram Stain - Preliminary Breast - Left Wound Culture - Preliminary 10/11/18 11:40 Anaerobic Culture - Preliminary Breast - Left Laboratory Results WBC 3.4 k/uL (3.8-10.6) L 10/11/18 11:57 RBC 2.24 m/uL (3.80-5.40) L 10/11/18 11:57 Hgb 7.7 gm/dL (11.4-16.0) L 10/11/18 11:57 Hct 23.3 % (34.0-46.0) L 10/11/18 11:57 MCV 103.8 fL (80.0-100.0) H 10/11/18 11:57 MCH 34.5 pg (25.0-35.0) 10/11/18 11:57 MCHC 33.2 g/dL (31.0-37.0) 10/11/18 11:57 RDW 16.2 % (11.5-15.5) H 10/11/18 11:57 Plt Count 428 k/uL (150-450) 10/11/18 11:57 Neutrophils % 73 % 10/11/18 11:57 Lymphocytes % 18 % 10/11/18 11:57 Monocytes % 4 % 10/11/18 11:57 Eosinophils % 1 % 10/11/18 11:57 Basophils % 1 % 10/11/18 11:57 Neutrophils # 2.5 k/uL (1.3-7.7) 10/11/18 11:57 Lymphocytes # 0.6 k/uL (1.0-4.8) L 10/11/18 11:57 Monocytes # 0.2 k/uL (0-1.0) 10/11/18 11:57 Eosinophils # 0.0 k/uL (0-0.7) 10/11/18 11:57 Basophils # 0.0 k/uL (0-0.2) 10/11/18 11:57 Anisocytosis Slight 10/11/18 11:57 Macrocytosis Moderate 10/11/18 11:57 Sodium 135 mmol/L (137-145) L 10/11/18 11:57 Potassium 4.6 mmol/L (3.5-5.1) 10/11/18 11:57 Chloride 102 mmol/L (98-107) 10/11/18 11:57 Carbon Dioxide 24 mmol/L (22-30) 10/11/18 11:57 Anion Gap 9 mmol/L 10/11/18 11:57 BUN 27 mg/dL (7-17) H 10/11/18 11:57 Creatinine 1.54 mg/dL (0.52-1.04) H 10/11/18 11:57 Est GFR (CKD-EPI)AfAm 39 (>60 ml/min/1.73 sqM) 10/11/18 11:57 Est GFR (CKD-EPI)NonAf 34 (>60 ml/min/1.73 sqM) 10/11/18 11:57 Glucose 98 mg/dL (74-99) 10/11/18 11:57 POC Glucose (mg/dL) 117 mg/dL (75-99) H 10/11/18 19:53 POC Glu Contact [facility] Professional Jody Marion 10/11/18 19:53 Calcium 8.7 mg/dL (8.4-10.2) 10/11/18 11:57 Magnesium 1.7 mg/dL (1.6-2.3) 10/11/18 11:57 Total Bilirubin 0.3 mg/dL (0.2-1.3) 10/11/18 11:57 AST 20 U/L (14-36) 10/11/18 11:57 ALT 29 U/L (9-52) 10/11/18 11:57 Alkaline Phosphatase 125 U/L (38-126) 10/11/18 11:57 Total Protein 6.1 g/dL (6.3-8.2) L 10/11/18 11:57 Albumin 3.1 g/dL (3.5-5.0) L 10/11/18 11:57 Microbiology 10/11/18 11:40 Breast - Left Gram Stain - Preliminary 10/11/18 11:40 Breast - Left Wound Culture - Preliminary 10/11/18 11:40 Breast - Left Anaerobic Culture - Preliminary Assessment and Plan (1) Cellulitis of chest wall Narrative/Plan: 68-year-old female who is a complex past medical history regarding her history of breast carcinoma. Currently receiving chemotherapy has developed evidence of extensive erythema some irritation and ulceration to the chest wall. There is been some drainage. This is been sent to laboratory for culture. While cultures are pending antibiotic therapy with vancomycin and cefepime have been initiated due to her history of cancer, relative immunocompromise and somewhat low white blood cell count. Cultures will further help derive the process. As far as to the local site concern would be to ongoing malignancy in this area as to why his become so markedly abnormal especially with current chemotherapy. Local wound care will be initiated with the TheraSkin honey to the open areas covering it. She has the postoperative bra in place to keep the dressings well fixated. Blood cultures are pending. Her white count is most of the with 3.4 and she also has some anemia and again is being monitored by hematology oncology. Patient control is not a significant issue at this time. Course of antibiotic therapy after discharge will need to be determined on multiple factors including progression in any evidence of positive blood cultures. Current Visit: Yes Status: Acute Code(s): L03.313 - CELLULITIS OF CHEST WALL SNOMED Code(s): 90608929 (2) Breast carcinoma Current Visit: Yes Status: Acute Code(s): C50.919 - MALIGNANT NEOPLASM OF UNSP SITE OF UNSPECIFIED FEMALE BREAST SNOMED Code(s): 100794066
[2018-10-12] MEDS: VANCOMYCIN 2,000 MG in SODIUM CHLORIDE 0.9% 500 ML 500 ML IVPB SCH (05:24)
[2018-10-12] MEDS: LEVOTHYROXINE 50 MCG TAB PO SCH (05:25)
[2018-10-12 07:14] LABS: Glucose,Whole Blood 100 mg/dL (75-99)
--- NOTE | 2018-10-12 08:05 | P.PN ---
Progress Note - Text Progress Note Date: 10/12/18 The patient is doing much better today. She feels stronger. SHe slept through the night.. Minimal pain. On examination the patient is afebrile. Slightly pale. Hydration is good. Mastectomy scar looks better in that the this cellulitis is less. Still a fair amount of induration superficial ulceration which is not unexpected in view of previous radiation treatment and extensive skin involvement off for malignancy. Opening on the lateral side is appropriate under sterile condition with a Q- tip which is able to be advanced the subcutaneous plane. There is no purulent drainage or abscess cavity underneath. After impression cellulitis left chest wall in the face of 4 immunosuppression with the chemotherapy and presents up from radiation changes and extensive skin involvement off of malignancy. Status post palliative left mastectomy for recurrent breast CA. History of diabetes mellitus. Obesity. Recommendation we'll await the culture reports. Continue on IV antibiotics per Dr. Herbert. Topical treatment. Progressive Improvement.
[2018-10-12] MEDS: INSULIN ASPART 100 UNIT/ML 1 ML 10 ML VIAL SQ SCH ×4 (08:29→21:32)
[2018-10-12] MEDS: metFORMIN 500 MG TAB PO SCH ×2 (08:29→18:23)
[2018-10-12] MEDS: BECLOMETHASONE DIPROPIONATE INHALATION SCH ×3 (08:30→21:30)
[2018-10-12] MEDS: APIXABAN 5 MG TAB PO SCH ×2 (08:31→21:32)
[2018-10-12] MEDS: FAMOTIDINE 20 MG TAB PO SCH (08:31)
[2018-10-12 10:23] LABS: Anisocytosis Slight; Basophils % (A) 1 %; Eosinophils % (A) 1 %; HCT 24.4 % (34.0-46.0); HGB 7.9 gm/dL (11.4-16.0); Lymphocytes # (A) 0.6 k/uL (1.0-4.8); Lymphocytes % (A) 19 %; MCH 34.5 pg (25.0-35.0); MCHC 32.4 g/dL (31.0-37.0); MCV 106.5 fL (80.0-100.0); Macrocytosis Moderate; Mean Platelet Volume 6.9; Monocytes # (A) 0.1 k/uL (0-1.0); Monocytes % (A) 3 %; Neutrophils # (A) 2.4 k/uL (1.3-7.7); Neutrophils % (A) 73 %; Platelet Count 465 k/uL (150-450); RBC 2.29 m/uL (3.80-5.40); RDW 16.1 % (11.5-15.5); WBC 3.3 k/uL (3.8-10.6)
[2018-10-12 10:30] LABS: Calcium 8.8 mg/dL (8.4-10.2); Potassium 4.5 mmol/L (3.5-5.1); Total Bilirubin 0.4 mg/dL (0.2-1.3); Total Protein 6.1 g/dL (6.3-8.2)
[2018-10-12 11:07] VITALS: BMI 43.4
[2018-10-12 11:16] LABS: Glucose,Whole Blood 112 mg/dL (75-99)
[2018-10-12] MEDS: MULTIVITAMINS, THERA 1 EACH TAB PO SCH (12:23)
[2018-10-12] MEDS: VITAMIN E (DL,TOCOPHERYL ACET) 400 UNIT CAP PO SCH (12:23)
[2018-10-12] MEDS: CHOLECALCIFEROL 1,000 UNIT TAB PO SCH (12:23)
[2018-10-12 17:09] LABS: Glucose,Whole Blood 107 mg/dL (75-99)
--- NOTE | 2018-10-12 17:35 | PN ---
PROGRESS NOTE DATE OF SERVICE: 10/12/2018. INTERIM HISTORY: This 68-year-old woman who was admitted with pain and swelling of the left breast cellulitis and possible wound infection is being closely monitored. The patient is on broad-spectrum IV antibiotics. Cultures are pending at this time. No chest pain. No palpitations. No fever. EXAM: Alert and oriented x3. Pulse is 78, blood pressure 197/44, respiration 20, temperature 97.1, pulse ox 100 percent on room air. HEENT: Conjunctivae normal. NECK: No jugular venous distention. CARDIOVASCULAR: S1, S2 muffled. Respiratory: Breath sounds diminished in the bases. No rhonchi. No crackles. Abdomen is soft, nontender. No mass palpable. Legs : No edema. No swelling. Central nervous system: No focal deficits. Examination of the right chest cellulitis. Nervous system: No focal deficits. LABS: WBC 3.8, hemoglobin 7.9, creatinine is 1.58. ASSESSMENT: 1. Acute cellulitis of the left breast status post recent surgery, postoperative wound infection. 2. History of recent left mastectomy. 3. Recurrent breast cancer. 4. Leukopenia, anemia, bicytopenia. 5. Increased MCV. 6. Hyponatremia. 7. Increased creatinine with chronic kidney stage III. 8. History of asthma. 9. Diabetes mellitus type 2. 10.Hypertension. 11.Constipation. 12.History of paroxysmal atrial fibrillation. 13.History of bronchitis. 14.History of degenerative joint disease. 15.History of cholecystectomy. 16.Obesity with body mass index of 43.5. RECOMMENDATIONS AND DISCUSSION: Recommend to continue current management. Symptomatic treatment. Otherwise, at this time, broad-spectrum IV antibiotics. Follow the cultures. Repeat labs. Follow the patient closely with Infectious Disease and vascular surgery. Further recommendations to follow. MMODL / IJN: [id number] / MTDD
[2018-10-12 20:05] LABS: Glucose,Whole Blood 120 mg/dL (75-99)
[2018-10-12 20:19] LABS: Hemoglobin A1C 5.8 % (4.0-6.0)
[2018-10-12] MEDS: CITALOPRAM HYDROBROMIDE 20 MG TAB PO SCH (21:32)
[2018-10-12] MEDS: LISINOPRIL 20 MG TAB PO SCH (21:36)
[2018-10-13] MEDS: VANCOMYCIN 2,000 MG in SODIUM CHLORIDE 0.9% 500 ML 500 ML IVPB SCH (05:47)
[2018-10-13] MEDS: LEVOTHYROXINE 50 MCG TAB PO SCH (05:47)
[2018-10-13 07:00] LABS: Glucose,Whole Blood 101 mg/dL (75-99)
[2018-10-13] MEDS: INSULIN ASPART 100 UNIT/ML 1 ML 10 ML VIAL SQ SCH ×4 (07:29→21:08)
[2018-10-13 07:38] LABS: Anisocytosis Slight; HCT 21.6 % (34.0-46.0); HGB 7.2 gm/dL (11.4-16.0); Hypochromasia Slight; MCH 35.6 pg (25.0-35.0); MCHC 33.3 g/dL (31.0-37.0); Macrocytosis Marked; Mean Platelet Volume 7.2; Platelet Count 397 k/uL (150-450); RBC 2.02 m/uL (3.80-5.40); RDW 16.3 % (11.5-15.5); WBC 2.4 k/uL (3.8-10.6)
[2018-10-13 07:49] LABS: Calcium 8.4 mg/dL (8.4-10.2); Potassium 4.8 mmol/L (3.5-5.1)
[2018-10-13] MEDS: metFORMIN 500 MG TAB PO SCH ×2 (08:24→17:55)
[2018-10-13] MEDS: APIXABAN 5 MG TAB PO SCH ×2 (08:24→19:46)
[2018-10-13] MEDS: CEFEPIME 2 GM in SODIUM CHLORIDE 0.9% 50 ML IVPB SCH ×2 (08:24→19:46)
[2018-10-13] MEDS: FAMOTIDINE 20 MG TAB PO SCH (08:24)
[2018-10-13] MEDS: BECLOMETHASONE DIPROPIONATE INHALATION SCH ×2 (08:45→21:11)
[2018-10-13 08:52] LABS: Band Neutrophils % 2 %; Lymphocytes # (M) 0.62 k/uL (1.0-4.8); Monocytes # (M) 0.17 k/uL (0-1.0); Neutrophils % (M) 65 %; Nucleated Red Blood Cells 0 /100 WBC (0-0); Total Cells Counted 100
--- NOTE | 2018-10-13 10:38 | P.PN ---
Subjective Progress Note Date: 10/13/18 no acute events pain well-controlled minimal drainage Objective - Vital Signs Vital signs: Vital Signs Temp 97.4 F L 10/13/18 05:00 Pulse 74 10/13/18 05:00 Resp 16 10/13/18 05:00 BP 106/47 10/13/18 05:00 Pulse Ox 98 10/13/18 05:00 Intake & Output 10/12/18 10/13/18 10/13/18 18:59 06:59 18:59 Intake Total 1680 Balance 1680 Weight 129.727 kg Intake: Intake, IV Titration 600 Amount Cefepime 2 gm In Sodium 100 Chloride 0.9% 50 ml @ 100 mls/hr IVPB Q12H [facility] Rx# :[id number] Vancomycin 2,000 mg In 500 Sodium Chloride 0.9% 500 ml 500 ml @ 167 mls/hr IVPB Q24H [facility] Rx#: [id number] Oral 1080 Other: Voiding Method Toilet Toilet Toilet # Voids 4 2 - Constitutional General appearance: Present: cooperative - Respiratory Details: nonlabored breathing - Cardiovascular Rhythm: regular - Gastrointestinal Gastrointestinal Comment(s): soft nontender nondistended - Integumentary Integumentary Comment(s): left breast with some cellulitis and minimal drainage no fluctuance - Psychiatric Psychiatric: Present: A&O x's 3 - Labs CBC & Chem 7: 10/13/18 06:46 10/13/18 06:46 Labs: Abnormal Lab Results - Last 24 Hours (Table) 10/12/18 10/12/18 10/12/18 Range/Units 11:15 17:07 20:04 WBC (3.8-10.6) k/uL RBC (3.80-5.40) m/uL Hgb (11.4-16.0) gm/dL Hct (34.0-46.0) % MCV (80.0-100.0) fL MCH (25.0-35.0) pg RDW (11.5-15.5) % Lymphocytes # (Manual) (1.0-4.8) k/uL Chloride (98-107) mmol/L BUN (7-17) mg/dL Creatinine (0.52-1.04) mg/dL POC Glucose (mg/dL) 112 H 107 H 120 H (75-99) mg/dL 10/13/18 10/13/18 10/13/18 Range/Units 06:46 06:46 06:58 WBC 2.4 L (3.8-10.6) k/uL RBC 2.02 L (3.80-5.40) m/uL Hgb 7.2 L (11.4-16.0) gm/dL Hct 21.6 L (34.0-46.0) % MCV 107.0 H (80.0-100.0) fL MCH 35.6 H (25.0-35.0) pg RDW 16.3 H (11.5-15.5) % Lymphocytes # (Manual) 0.62 L (1.0-4.8) k/uL Chloride 108 H (98-107) mmol/L BUN 28 H (7-17) mg/dL Creatinine 1.47 H (0.52-1.04) mg/dL POC Glucose (mg/dL) 101 H (75-99) mg/dL Microbiology - Last 24 Hours (Table) 10/11/18 11:57 Blood Culture - Preliminary Blood No Growth after 24 hours 10/11/18 12:04 Blood Culture - Preliminary Blood No Growth after 24 hours Assessment and Plan Assessment: left breast cellulitis. Plan: continue topical treatment for ulcers and antibiotics per infectious disease.
[2018-10-13 12:01] LABS: Glucose,Whole Blood 101 mg/dL (75-99)
[2018-10-13] MEDS: VITAMIN E (DL,TOCOPHERYL ACET) 400 UNIT CAP PO SCH (12:28)
[2018-10-13] MEDS: MULTIVITAMINS, THERA 1 EACH TAB PO SCH (12:28)
[2018-10-13] MEDS: CHOLECALCIFEROL 1,000 UNIT TAB PO SCH (12:29)
[2018-10-13 17:02] LABS: Glucose,Whole Blood 117 mg/dL (75-99)
[2018-10-13] MEDS: LISINOPRIL 20 MG TAB PO SCH (19:46)
[2018-10-13] MEDS: CITALOPRAM HYDROBROMIDE 20 MG TAB PO SCH (19:46)
[2018-10-13] MEDS: ATORVASTATIN 20 MG TAB PO SCH (19:46)
[2018-10-13 20:34] LABS: Glucose,Whole Blood 108 mg/dL (75-99)
--- NOTE | 2018-10-13 22:15 | PN ---
PROGRESS NOTE DATE OF SERVICE: 10/13/2018 This 68-year-old woman who was admitted with acute cellulitis of the left breast area after surgery is being closely monitored. Cultures are negative so far. The patient on broad spectrum IV antibiotics. EXAM: Alert and oriented. Pulse 82, blood pressure 119/59, respirations 16, temperature 98 degrees, pulse ox 98% on room air. HEENT: Conjunctivae normal. Oral mucosa moist. Neck: No jugular venous distention. No lymph nodes. Cardiovascular: S1, S2. Respiratory: Diminished breath sounds in the bases. No rhonchi, no crackles. Abdomen soft, nontender. Legs: No edema. Nervous System: No focal deficits. Examination of the left breast area, cellulitis present. LAB STUDIES: At this time shows WBC 2.4, hemoglobin 7.2, sodium 138, potassium 4.8. ASSESSMENT: 1. Acute cellulitis of the left breast area, status post surgery with possibly wound infection. 2. History of recent left mastectomy. 3. Recurrent breast cancer. 4. Leukopenia, bicytopenia. 5. Increased MCV. 6. Hyponatremia. 7. Increased creatinine with chronic kidney disease, Stage 3. 8. History of asthma. 9. Diabetes type 2. 10.Hypertension. 11.Constipation. 12.History of paroxysmal atrial fibrillation. 13.History of bronchitis. 14.History of degenerative joint disease. 15.History of cholecystectomy. 16.Obesity with body mass index 43.5. RECOMMENDATIONS: Continue current medications, continue to monitor, continue symptomatic treatment. Otherwise, at this time continue with the broad-spectrum IV antibiotics. Follow the cultures. Closely follow with Infectious Disease and as well as surgery. Further recommendations to follow. MMODL / IJN: [id number] /
[2018-10-14] MEDS: VANCOMYCIN 2,000 MG in SODIUM CHLORIDE 0.9% 500 ML 500 ML IVPB SCH (06:30)
[2018-10-14] MEDS: LEVOTHYROXINE 50 MCG TAB PO SCH (06:30)
[2018-10-14 07:00] LABS: Glucose,Whole Blood 89 mg/dL (75-99)
[2018-10-14] MEDS: INSULIN ASPART 100 UNIT/ML 1 ML 10 ML VIAL SQ SCH ×4 (07:51→20:56)
[2018-10-14 07:56] LABS: Anisocytosis Slight; HCT 22.3 % (34.0-46.0); HGB 7.5 gm/dL (11.4-16.0); MCH 33.9 pg (25.0-35.0); MCHC 33.5 g/dL (31.0-37.0); Macrocytosis Slight; Mean Platelet Volume 7.5; Platelet Count 411 k/uL (150-450); RDW 16.2 % (11.5-15.5)
[2018-10-14 07:57] LABS: MCV 101.3 fL (80.0-100.0)
[2018-10-14] MEDS: metFORMIN 500 MG TAB PO SCH ×2 (07:58→18:14)
[2018-10-14] MEDS: APIXABAN 5 MG TAB PO SCH ×2 (07:58→20:54)
[2018-10-14] MEDS: FAMOTIDINE 20 MG TAB PO SCH (07:59)
[2018-10-14 08:16] LABS: Calcium 9.1 mg/dL (8.4-10.2)
[2018-10-14 08:22] LABS: Potassium 5.5 mmol/L (3.5-5.1)
[2018-10-14] MEDS: BECLOMETHASONE DIPROPIONATE INHALATION SCH ×2 (08:32→20:09)
[2018-10-14 08:36] LABS: Lymphocytes # (M) 0.75 k/uL (1.0-4.8); Monocytes # (M) 0.39 k/uL (0-1.0); Neutrophils # (M) 1.86 k/uL (1.3-7.7); Neutrophils % (M) 62 %; Nucleated Red Blood Cells 0 /100 WBC (0-0); Total Cells Counted 100
[2018-10-14] MEDS: CEFEPIME 2 GM in SODIUM CHLORIDE 0.9% 50 ML IVPB SCH ×2 (10:35→20:50)
[2018-10-14 11:56] LABS: Glucose,Whole Blood 107 mg/dL (75-99)
[2018-10-14] MEDS: MULTIVITAMINS, THERA 1 EACH TAB PO SCH (13:04)
[2018-10-14] MEDS: VITAMIN E (DL,TOCOPHERYL ACET) 400 UNIT CAP PO SCH (13:04)
[2018-10-14] MEDS: CHOLECALCIFEROL 1,000 UNIT TAB PO SCH (13:04)
[2018-10-14 16:50] LABS: Glucose,Whole Blood 93 mg/dL (75-99)
--- NOTE | 2018-10-14 19:49 | PN ---
PROGRESS NOTE DATE OF SERVICE: 10/14/2018 This 68-year-old woman who was admitted with acute cellulitis of the breast area, is on IV antibiotics. No chest pain. No palpitations. No fever. EXAM: Alert and oriented x3. The pulse is 72, blood pressure 110/50, respiration 16, temperature 97.8, pulse ox 98% on room air. HEENT: Conjunctivae normal. Oral mucosa moist. Neck is no jugular venous distention. No carotid bruit. No lymph node enlargement. CARDIOVASCULAR: S1, S2. RESPIRATORY: Breath sounds diminished in the bases. No rhonchi, no crackles. ABDOMEN: Soft, nontender. LEGS: No edema. Left breast status post cellulitis. LABS: WBC 8, hemoglobin 7.5, potassium 5.5. ASSESSMENT: 1. Acute cellulitis of the left breast area, status post surgery with possibly wound infection. 2. History of recent left mastectomy. 3. Recurrent breast cancer history. 4. Leukopenia bicytopenia. 5. Increased MCV. 6. Hyponatremia. 7. Increased creatinine with chronic kidney disease stage III. 8. History of asthma. 9. Diabetes type 2. 10.Hypertension. 11.Constipation history. 12.History of paroxysmal atrial fibrillation. 13.History of bronchitis. 14.History of degenerative joint disease. 15.History of cholecystectomy. 16.Obesity with body mass index of 43.5. RECOMMENDATION AND DISCUSSION: I recommend to continue current medications, continue monitoring and symptomatic treatment. Otherwise at this time we will monitor the patient closely. Continue the antibiotics. Cultures are negative so far. Further recommendations to follow. MMODL / IJN: [id number] /
[2018-10-14 20:46] LABS: Glucose,Whole Blood 129 mg/dL (75-99)
[2018-10-14] MEDS: ATORVASTATIN 20 MG TAB PO SCH (20:55)
[2018-10-14] MEDS: LISINOPRIL 20 MG TAB PO SCH (20:55)
[2018-10-14] MEDS: CITALOPRAM HYDROBROMIDE 20 MG TAB PO SCH (20:55)
[2018-10-15] MEDS ORDERED: VANCOMYCIN TROUGH DUE 1 EACH MISC MISCELLANE ONE (05:00)
[2018-10-15 06:09] LABS: Anisocytosis Slight; HCT 22.7 % (34.0-46.0); HGB 7.4 gm/dL (11.4-16.0); Hypochromasia Slight; MCH 34.8 pg (25.0-35.0); MCHC 32.7 g/dL (31.0-37.0); MCV 106.2 fL (80.0-100.0); Macrocytosis Moderate; Mean Platelet Volume 6.7; Platelet Count 427 k/uL (150-450); RBC 2.14 m/uL (3.80-5.40); RDW 16.6 % (11.5-15.5); WBC 2.6 k/uL (3.8-10.6)
[2018-10-15] MEDS: VANCOMYCIN 2,000 MG in SODIUM CHLORIDE 0.9% 500 ML 500 ML IVPB SCH (06:22)
[2018-10-15 06:38] LABS: Eosinophils # (M) 0.13 k/uL (0-0.7); Lymphocytes # (M) 0.62 k/uL (1.0-4.8); Monocytes # (M) 0.29 k/uL (0-1.0); Myelocytes # (M) 0.05 k/uL (0); Myelocytes % 2 %; Neutrophils # (M) 1.51 k/uL (1.3-7.7); Neutrophils % (M) 58 %; Nucleated Red Blood Cells 0 /100 WBC (0-0); Polychromasia Present; Total Cells Counted 200
[2018-10-15 06:43] LABS: Calcium 9.1 mg/dL (8.4-10.2); Potassium 4.5 mmol/L (3.5-5.1)
[2018-10-15 07:22] LABS: Glucose,Whole Blood 110 mg/dL (75-99)
[2018-10-15] MEDS: BECLOMETHASONE DIPROPIONATE INHALATION SCH ×2 (07:44→19:15)
[2018-10-15] MEDS: APIXABAN 5 MG TAB PO SCH ×2 (07:59→20:46)
[2018-10-15] MEDS: INSULIN ASPART 100 UNIT/ML 1 ML 10 ML VIAL SQ SCH ×4 (07:59→20:43)
[2018-10-15] MEDS: LEVOTHYROXINE 50 MCG TAB PO SCH (08:00)
[2018-10-15] MEDS: metFORMIN 500 MG TAB PO SCH ×2 (08:00→17:36)
[2018-10-15] MEDS: FAMOTIDINE 20 MG TAB PO SCH (08:00)
[2018-10-15] MEDS: CEFEPIME 2 GM in SODIUM CHLORIDE 0.9% 50 ML IVPB SCH ×2 (10:17→20:46)
[2018-10-15 11:34] LABS: Glucose,Whole Blood 108 mg/dL (75-99)
[2018-10-15] MEDS: VITAMIN E (DL,TOCOPHERYL ACET) 400 UNIT CAP PO SCH (12:13)
[2018-10-15] MEDS: MULTIVITAMINS, THERA 1 EACH TAB PO SCH (12:13)
[2018-10-15] MEDS: CHOLECALCIFEROL 1,000 UNIT TAB PO SCH (12:14)
[2018-10-15 16:28] LABS: Glucose,Whole Blood 118 mg/dL (75-99)
--- NOTE | 2018-10-15 18:32 | PN ---
PROGRESS NOTE DATE OF SERVICE: 10/15/2018 This 68-year-old woman who was admitted with acute cellulitis of the left breast area after surgery is being closely monitored. The patient is on IV antibiotics. Surgery is following the patient closely. No chest pain or palpitation. No fever. The cultures are negative so far. PHYSICAL EXAMINATION: On exam, alert and oriented x3. Pulse is 75, blood pressure 106/53, respiration 18, temperature 97.6, pulse ox 98% on room air. HEENT: Conjunctivae normal. NECK: No jugular venous distention. CARDIOVASCULAR: S1, S2 muffled. RESPIRATORY: Breath sounds diminished in the bases. No rhonchi, no crackles. ABDOMEN: Soft, nontender. NERVOUS SYSTEM: No focal deficits. EXAMINATION OF LEFT BREAST: Minimal erythema. LABS: WBC 2.6, hemoglobin 7.4. Creatinine is 1.24. ASSESSMENT: 1. Acute cellulitis of the left breast area, status post recent surgery with possible wound infection. 2. History of recent left mastectomy. 3. Recurrent breast cancer history. 4. History of radiation. 5. Leukopenia, bicytopenia. 6. Increased MCV. 7. Hyponatremia. 8. Increased creatinine with chronic kidney stage III. 9. History of asthma. 10.Diabetes mellitus type 2. 11.Hypertension. 12.History of constipation. 13.History of paroxysmal atrial fibrillation. 14.History of bronchitis. 15.History of degenerative joint disease. 16.History of cholecystectomy. 17.Obesity with body mass index of 43.5. RECOMMENDATIONS AND DISCUSSION: Recommend to continue current medications, continue with symptomatic treatment. Continue with broad-spectrum IV antibiotics. Closely follow with Surgery. Follow the cultures which are negative so far. Further recommendations to follow. MMODL / IJN: [id number] /
[2018-10-15 20:00] LABS: Glucose,Whole Blood 121 mg/dL (75-99)
[2018-10-15] MEDS: LISINOPRIL 20 MG TAB PO SCH (20:45)
[2018-10-15] MEDS: CITALOPRAM HYDROBROMIDE 20 MG TAB PO SCH (20:46)
[2018-10-15] MEDS: ATORVASTATIN 20 MG TAB PO SCH (20:46)
[2018-10-16 06:40] LABS: Glucose,Whole Blood 102 mg/dL (75-99)
[2018-10-16] MEDS: LEVOTHYROXINE 50 MCG TAB PO SCH (06:41)
[2018-10-16] MEDS: INSULIN ASPART 100 UNIT/ML 1 ML 10 ML VIAL SQ SCH ×4 (06:56→21:24)
[2018-10-16 07:33] LABS: Anisocytosis Slight; HCT 23.9 % (34.0-46.0); HGB 7.5 gm/dL (11.4-16.0); Hypochromasia Slight; MCH 33.8 pg (25.0-35.0); MCHC 31.4 g/dL (31.0-37.0); MCV 107.5 fL (80.0-100.0); Macrocytosis Marked; Mean Platelet Volume 7.7; Platelet Count 428 k/uL (150-450); RBC 2.22 m/uL (3.80-5.40); RDW 16.6 % (11.5-15.5); WBC 2.7 k/uL (3.8-10.6)
[2018-10-16] MEDS: CEFEPIME 2 GM in SODIUM CHLORIDE 0.9% 50 ML IVPB SCH ×2 (07:44→21:26)
[2018-10-16] MEDS: metFORMIN 500 MG TAB PO SCH ×2 (07:47→17:37)
[2018-10-16] MEDS: FAMOTIDINE 20 MG TAB PO SCH (07:48)
[2018-10-16] MEDS: APIXABAN 5 MG TAB PO SCH ×2 (07:48→21:26)
[2018-10-16 07:56] LABS: Calcium 8.8 mg/dL (8.4-10.2); Potassium 4.4 mmol/L (3.5-5.1)
[2018-10-16] MEDS: VANCOMYCIN 1,500 MG in SODIUM CHLORIDE 0.9% 250 ML IVPB SCH (08:38)
[2018-10-16] MEDS: BECLOMETHASONE DIPROPIONATE INHALATION SCH ×3 (08:38→20:10)
[2018-10-16 10:55] LABS: Basophils # (M) 0.05 k/uL (0-0.2); Eosinophils # (M) 0.11 k/uL (0-0.7); Lymphocytes # (M) 0.86 k/uL (1.0-4.8); Monocytes # (M) 0.24 k/uL (0-1.0); Neutrophils # (M) 1.43 k/uL (1.3-7.7); Neutrophils % (M) 53 %; Nucleated Red Blood Cells 0 /100 WBC (0-0); Poikilocytosis (M) Present; Total Cells Counted 100
[2018-10-16 11:38] LABS: Glucose,Whole Blood 117 mg/dL (75-99)
[2018-10-16] MEDS: MULTIVITAMINS, THERA 1 EACH TAB PO SCH (12:11)
[2018-10-16] MEDS: VITAMIN E (DL,TOCOPHERYL ACET) 400 UNIT CAP PO SCH (12:11)
[2018-10-16] MEDS: CHOLECALCIFEROL 1,000 UNIT TAB PO SCH (12:12)
[2018-10-16 17:15] LABS: Glucose,Whole Blood 104 mg/dL (75-99)
[2018-10-16] MEDS ORDERED: LISINOPRIL 10 MG TAB PO SCH (21:00)
[2018-10-16 21:10] LABS: Glucose,Whole Blood 108 mg/dL (75-99)
[2018-10-16] MEDS: CITALOPRAM HYDROBROMIDE 20 MG TAB PO SCH (21:26)
[2018-10-16] MEDS: ATORVASTATIN 20 MG TAB PO SCH (21:26)
--- NOTE | 2018-10-16 22:24 | PN ---
PROGRESS NOTE DATE OF SERVICE: 10/16/2018 This 68-year-old woman who was admitted with acute cellulitis of the left breast area, is on broad-spectrum IV antibiotics at this time. The area of erythema is decreased significantly. Patient also had some ulcerations on the chest wall, also on the left side. The patient is on broad-spectrum IV antibiotics. Surgery is following the patient closely as well as Infectious Disease. The cultures are negative so far. PAST MEDICAL HISTORY: Reviewed. REVIEW OF SYSTEMS: Cardiovascular: No angina or palpitations. Respirations: As mentioned earlier. GI: As mentioned earlier. : As mentioned earlier. Central nervous system: No focal deficits. CURRENT MEDICATIONS: Reviewed and include: 1. Ventolin 2.5 q.6h p.r.n. 2. Xanax 0.5 t.i.d. 3. Eliquis 5 mg b.i.d. 4. Lipitor 20 mg severe pain 2 g IV b.i.d. 5. Vitamin D3. 6. Celexa 20 mg. 7. Pepcid 20 mg daily. 8. NovoLog scale. 9. Synthroid 50 mcg daily. 10.Zestril 20 mg q.h.s. 11.Glucophage 500 mg b.i.d. 13.Restoril 50 mg q.h.s. 14.Vancomycin. 15.Vitamin E 400 mg daily. PHYSICAL EXAM: Patient is alert, oriented x3, pulse 76, pressure 82/60, respirations 16. Temperature is 97.6, pulse ox 96% on room air. HEENT: Conjunctivae normal. Oral mucosa moist. Neck is no jugular venous distention. No carotid bruit. No lymph node node enlargement. Cardiovascular systems: S1, S2 muffled. Respirations: Breath sounds diminished in the bases. No rhonchi. No crackles. ABDOMEN: Soft, nontender. No mass palpable. Nervous system: No focal deficits. LABS: At this time shows WBC 2.7, hemoglobin 7.5, and platelets are 428. Creatinine is 1.26. ASSESSMENT: 1. Acute cellulitis of the left breast area with ulcerations status post recent surgery with possible wound infection. 2. History of recent left mastectomy. 3. Recurrent breast cancer history. 4. Relative hypotension. 5. History of radiation. 6. Leukopenia/bicytopenia. 7. Increased MCV. 8. Hyponatremia. 9. Increased creatinine with chronic kidney disease stage III. 10.History of asthma. 11.Diabetes mellitus type 2. 12.Hypertension. 13.History of constipation. 14.History of paroxysmal atrial fibrillation. 15.History of bronchitis. 16.History of degenerative joint disease. 17.History of cholecystectomy. 18.Obesity with body mass of 43.5. RECOMMENDATIONS AND DISCUSSION: Recommend to continue current medications, monitor and symptomatic treatment. Otherwise, at this time, I recommend reduced dose of lisinopril and hold if systolic less than 100. Continue the antibiotics. As mentioned earlier, the patient had significant lesions on the left chest wall, which is improving also. However, we will follow the patient closely with Infectious Disease. Bicytopenia has been noted and leukopenia. We will monitor the WBC closely for any further reduction in the leukopenia, creatinine is 1.6. We will also keep a close eye on it. Blood pressure noted. Further recommendations follow. IV bolus of fluid at 250 mL also will be ordered. MMODL / IJN: [id number] / MTDD
[2018-10-17] MEDS: LEVOTHYROXINE 50 MCG TAB PO SCH (05:56)
[2018-10-17 07:01] LABS: Glucose,Whole Blood 104 mg/dL (75-99)
[2018-10-17] MEDS: BECLOMETHASONE DIPROPIONATE INHALATION SCH (07:13)
[2018-10-17 07:41] LABS: Potassium 4.8 mmol/L (3.5-5.1)
[2018-10-17 07:55] LABS: Anisocytosis Slight; HCT 23.1 % (34.0-46.0); HGB 7.6 gm/dL (11.4-16.0); Hypochromasia Slight; MCH 34.9 pg (25.0-35.0); MCHC 32.8 g/dL (31.0-37.0); MCV 106.4 fL (80.0-100.0); Macrocytosis Moderate; Mean Platelet Volume 7.9; Platelet Count 404 k/uL (150-450); RBC 2.17 m/uL (3.80-5.40); RDW 16.5 % (11.5-15.5); WBC 3.3 k/uL (3.8-10.6)
[2018-10-17] MEDS: INSULIN ASPART 100 UNIT/ML 1 ML 10 ML VIAL SQ SCH ×2 (08:26→13:54)
[2018-10-17] MEDS: APIXABAN 5 MG TAB PO SCH (08:27)
[2018-10-17] MEDS: FAMOTIDINE 20 MG TAB PO SCH (08:27)
[2018-10-17] MEDS: metFORMIN 500 MG TAB PO SCH (08:27)
[2018-10-17] MEDS: CEFEPIME 2 GM in SODIUM CHLORIDE 0.9% 50 ML IVPB SCH (08:29)
[2018-10-17 08:45] LABS: Band Neutrophils % 1 %; Basophils # (M) 0.03 k/uL (0-0.2); Lymphocytes # (M) 0.86 k/uL (1.0-4.8); Metamyelocytes # (M) 0.03 k/uL (0); Metamyelocytes % 1 %; Myelocytes # (M) 0.03 k/uL (0); Myelocytes % 1 %; Neutrophils % (M) 55 %; Nucleated Red Blood Cells 0 /100 WBC (0-0); Total Cells Counted 200
[2018-10-17] MEDS: VANCOMYCIN 1,500 MG in SODIUM CHLORIDE 0.9% 250 ML IVPB SCH (09:17)
[2018-10-17 12:39] VITALS: BP 134/60; PULSE 80; RESP 18; TEMP 98.7
[2018-10-17] MEDS: CHOLECALCIFEROL 1,000 UNIT TAB PO SCH (14:17)
[2018-10-17] MEDS: VITAMIN E (DL,TOCOPHERYL ACET) 400 UNIT CAP PO SCH (14:17)
[2018-10-17] MEDS: MULTIVITAMINS, THERA 1 EACH TAB PO SCH (14:17)
--- NOTE | 2018-10-17 18:28 | DS ---
DISCHARGE SUMMARY DATE OF SERVICE: 10/17/2018 FINAL DIAGNOSES: 1. Acute cellulitis of the left breast area as well as ulcerations, status post recent surgery with possible wound infection. 2. History of recent left mastectomy. 3. Recurrent breast cancer history. 4. Relative hypotension. 5. History of radiation. 6. Leukopenia, bicytopenia. 7. Increased mean corpuscular volume. 8. Hyponatremia. 9. Increased creatinine with chronic kidney disease, stage III. 10.History of asthma. 11.Diabetes mellitus, type 2. 12.Hypertension. 13.History of constipation. 14.History of paroxysmal atrial fibrillation. 15.History of bronchitis. 16.History of degenerative joint disease. 17.History of cholecystectomy. 18.Obesity with body mass index of 43.5. DISCHARGE DISPOSITION: The patient will be discharged in stable condition with guarded prognosis. HISTORY OF PRESENT ILLNESS: This is a 68-year-old woman with a past medical history of multiple medical problems, including cellulitis and postoperative infection of the left breast wound. The patient was treated with antibiotics. Cultures are negative so far. Patient improved significantly. On exam, vitals are stable. CARDIOVASCULAR SYSTEM: S1, S2 muffled. ABDOMEN: Soft. NERVOUS SYSTEM: No focal deficit. DISCHARGE ADVICE AND MEDICATIONS: 1. Diet is cardiac. 2. Activity limited until followup. 3. Follow up with Dr. Castorena in 2-3 days. 4. Follow up with Dr. Delcid. 5. Follow up with Dr. Zarate. 6. Wound care as recommended. 7. Ventolin HFA 1-2 puffs q.6 p.r.n. 8. Eliquis 5 mg p.o. b.i.d. 9. Lipitor 20 mg as before. 10.Qvar 1 puff b.i.d. 11.Vitamin D3 1000 daily. 12.Celexa 20 mg at bedtime. 13.Pepcid 20 mg daily. 14.Synthroid 50 mcg p.o. daily. 15.Metformin 500 mg p.o. b.i.d. 16.Multivitamins 1 p.o. daily. 17.Vitamin E 400 units daily. 18.Zestril 10 mg p.o. at bedtime. 19.Antibiotics per Infectious Disease. MMODL / IJN: [id number] /
== END 2018-10-17 14:25 | disposition home or self-care (01) | DRG 603 ==
LOC: 3NMEDONC 10-11 08:46
PROVIDERS: ADMIT Hospitalist; ATTEND Hospitalist
DX: L03.313 Cellulitis of chest wall (principal); E87.1 Hypo-osmolality and hyponatremia; T81.49XA Infection following a procedure, other surgical site, initial encounter; C79.2 Secondary malignant neoplasm of skin; C50.912 Malignant neoplasm of unspecified site of left female breast; D64.81 Anemia due to antineoplastic chemotherapy; T45.1X5A Adverse effect of antineoplastic and immunosuppressive drugs, initial encounter; D70.1 Agranulocytosis secondary to cancer chemotherapy; E11.22 Type 2 diabetes mellitus with diabetic chronic kidney disease; E66.9 Obesity, unspecified; I12.9 Hypertensive chronic kidney disease with stage 1 through stage 4 chronic kidney disease, or unspecified chronic kidney disease; I48.0 Paroxysmal atrial fibrillation; J45.909 Unspecified asthma, uncomplicated; K59.00 Constipation, unspecified; N18.3 Chronic kidney disease, stage 3 (moderate); K57.90 Diverticulosis of intestine, part unspecified, without perforation or abscess without bleeding; M19.90 Unspecified osteoarthritis, unspecified site; I95.9 Hypotension, unspecified; Z79.01 Long term (current) use of anticoagulants; Z68.41 Body mass index [BMI] 40.0-44.9, adult; Z79.84 Long term (current) use of oral hypoglycemic drugs; Z79.899 Other long term (current) drug therapy; Z79.890 Hormone replacement therapy; Z92.3 Personal history of irradiation; Z90.710 Acquired absence of both cervix and uterus; Z90.49 Acquired absence of other specified parts of digestive tract; Z90.12 Acquired absence of left breast and nipple; Z85.3 Personal history of malignant neoplasm of breast; Z88.1 Allergy status to other antibiotic agents; Z88.2 Allergy status to sulfonamides; Z82.49 Family history of ischemic heart disease and other diseases of the circulatory system
CPT/HCPCS: 80048; 80053; 80202; 83036; 83735; 85025; 87040; 87070; 87075; 87205; 94640

== ENCOUNTER → 2019-04-01 | Outpatient (CLI) | payer MEDICARE ==
--- NOTE | 2019-04-04 13:33 | PE ---
Nuclear medicine PET/CT HISTORY: Left breast cancer, subsequent Patient received 12.8 mCi F-18 FDG intravenously in delayed scanning was performed from the skull bas e to the mid thighs. Localization and attenuation correction CT scan was performed. Correlation to prior CT 03/17/2018 Neck and chest: There is no evident cervical, axillary, hilar, mediastinal adenopathy. Patient is pos t left mastectomy. No pleural or pericardial effusion. Scattered subcentimeter nodules within the janny gs are too small to characterize, no suspicious hypermetabolic uptake. Uptake along the patient's mas tectomy site at the chest wall is likely due to posttreatment change. ABDOMEN: The liver shows no mass shows hypermetabolic uptake. There is no retroperitoneal adenopathy or ascites. Uterus and adnexal structures are not seen. Osseous structures shows no suspicious hypermetabolic uptake. There is no evident lytic or blastic le ramana. IMPRESSION: Metastatic disease is not evident.
== END | disposition home or self-care (01) ==
LOC: RADPETMAIN 10:57
PROVIDERS: ATTEND Internal Medicine Hematology & Oncology
DX: Z08 Encounter for follow-up examination after completed treatment for malignant neoplasm (principal); Z85.3 Personal history of malignant neoplasm of breast
CPT/HCPCS: 78815; A9552

== ENCOUNTER → 2019-05-30 | Outpatient (CLI) | payer MEDICARE ==
--- NOTE | 2019-05-30 15:57 | XR ---
EXAMINATION TYPE: XR Hip Complete RT DATE OF EXAM: 05/30/2019 COMPARISON: NONE HISTORY: Pain TECHNIQUE: 2 views submitted FINDINGS: There is no evidence of erosive change or acute fracture. Calcifications in the pelvis likely vascular. IMPRESSION: 1. No evidence of acute fracture or dislocation.
== END | disposition home or self-care (01) ==
LOC: RADXRYALE 15:02
PROVIDERS: ATTEND Physician Assistant Medical
DX: M25.552 Pain in left hip (principal); M25.551 Pain in right hip
CPT/HCPCS: 73502

== ENCOUNTER → 2019-06-28 | Outpatient (CLI) | payer MEDICARE ==
--- NOTE | 2019-06-28 13:51 | US ---
EXAMINATION TYPE: US kidneys/renal and bladder DATE OF EXAM: 06/28/2019 COMPARISON: NONE CLINICAL HISTORY: N18.4 Chronic Kidney dz stage 4,E11.22 Type II diabetes. EXAM MEASUREMENTS: Right Kidney: 9.3 x 4.0 x 4.3 cm Left Kidney: 9.5 x 4.4 x 4.2 cm Right Kidney: echogenic sinus with cortical thinning Left Kidney: echogenic sinus with cortical thinning Bladder: not fully distended, patient felt full There is no evidence for hydronephrosis at this point in time. No nephrolithiasis is seen. No jennifer s are identified. The urinary bladder is anechoic. Bilateral ureteral jets are seen. IMPRESSION: 1. Cortical renal thinning representing sequela of chronic medical renal disease. 2. No hydronephrosis or nephrolithiasis. No suspicious renal mass.
== END | disposition home or self-care (01) ==
LOC: RADUSWWP 11:55
PROVIDERS: ATTEND Family Medicine
DX: E11.22 Type 2 diabetes mellitus with diabetic chronic kidney disease (principal); N18.4 Chronic kidney disease, stage 4 (severe)
CPT/HCPCS: 76770

== ENCOUNTER → 2019-06-29 | Outpatient (CLI) | payer MEDICARE ==
--- NOTE | 2019-06-29 14:52 | MM ---
Reason for exam: additional evaluation requested from prior study. Last mammogram was performed 1 year ago. History: Patient is postmenopausal and has history of breast cancer at age 61. Family history of breast cancer in paternal grandmother and breast cancer in maternal cousin. Malignant left breast needle localization of the left breast, June 30, 2011. Malignant left mammotome panel of the left breast, June 17, 2011. Radiation therapy of the left breast, 2010. Benign stereotactic core biopsy of the left breast, February 29, 2004. Core biopsy of the left breast. Took estrogen for 5 years beginning at age 36. Physical Findings: Nurse did not find any significant physical abnormalities on exam. MG Diagnostic Mammo RT w CAD CC, MLO, ML, and XCCL view(s) were taken of the right breast. Prior study comparison: June 23, 2018, bilateral MG 3d diag mammo w/cad [facility]. May 20, 2017, bilateral MG 3d diag mammo w/cad [facility]. The breast tissue is heterogeneously dense. This may lower the sensitivity of mammography. There are benign appearing round calcifications in the right breast. There is chronic nodularity in the right breast. There is no discrete abnormality. These results were verbally communicated with the patient and result sheet given to the patient on 06/29/19. ASSESSMENT: Benign, BI-RAD 2 RECOMMENDATION: Follow-up diagnostic mammogram of the right breast in 1 year.
== END | disposition home or self-care (01) ==
LOC: RADMAMWWP 07:23
PROVIDERS: ATTEND Internal Medicine Hematology & Oncology
DX: R92.8 Other abnormal and inconclusive findings on diagnostic imaging of breast (principal); Z85.3 Personal history of malignant neoplasm of breast
CPT/HCPCS: 77065

== ENCOUNTER → 2020-02-05 | Outpatient (CLI) | payer MEDICARE | END | disposition home or self-care (01) | CPT/HCPCS: 77080 ==

== ENCOUNTER → 2021-01-23 | Outpatient (CLI) | payer MEDICARE ==
--- NOTE | 2021-01-23 10:02 | MM ---
Reason for exam: additional evaluation requested from prior study. Last mammogram was performed 1 year and 7 months ago. History: Patient is postmenopausal and has history of breast cancer at age 61. Family history of breast cancer in paternal grandmother and breast cancer in maternal cousin. Mastectomy of the left breast, 2016. Malignant left breast needle localization of the left breast, June 30, 2011. Malignant left mammotome panel of the left breast, June 17, 2011. Radiation therapy of the left breast, 2010. Benign stereotactic core biopsy of the left breast, February 29, 2004. Core biopsy of the left breast. Took estrogen for 5 years beginning at age 36. Physical Findings: Nurse did not find any significant physical abnormalities on exam. MG 3D Diag Mammo W/Cad RT CC and MLO view(s) were taken of the right breast. Prior study comparison: June 29, 2019, right breast MG diagnostic mammo RT w CAD. June 23, 2018, bilateral MG 3d diag mammo w/cad [facility]ANDA. The breast tissue is heterogeneously dense. This may lower the sensitivity of mammography. There is chronic nodularity in the right breast. There is no discrete abnormality. These results were verbally communicated with the patient and result sheet given to the patient on 01/23/21. ASSESSMENT: Negative, BI-RAD 1 RECOMMENDATION: Follow-up diagnostic mammogram of the right breast in 1 year.
== END | disposition home or self-care (01) ==
LOC: RADMAMWWP 08:48
PROVIDERS: ATTEND Internal Medicine Hematology & Oncology
DX: Z08 Encounter for follow-up examination after completed treatment for malignant neoplasm (principal); Z85.3 Personal history of malignant neoplasm of breast
CPT/HCPCS: 77065; G0279; 77061

== ENCOUNTER → 2021-09-19 | Outpatient (CLI) | payer MEDICARE ==
--- NOTE | 2021-09-22 13:27 | PE ---
Nuclear medicine PET/CT HISTORY: Breast carcinoma, subsequent, C 50.012 Patient received 10.4 mCi F-18 FDG intravenously in delayed scanning was performed from the skull bas e to the mid thighs. Localization and attenuation correction CT scan was performed. Correlation prior nuclear medicine PET/CT 04/01/2019 Chest and neck: There is no cervical or supraclavicular adenopathy. No mediastinal, axillary, or calvin r adenopathy. There is no pleural pericardial effusion. No evident lung mass. No suspicious uptake. P atient is status post left mastectomy. ABDOMEN: There is no evident liver mass, no retroperitoneal adenopathy or suspicious uptake. Patient is post cholecystectomy. There is a hiatal hernia with partial intrathoracic stomach. Osseous structures show no suspicious uptake. IMPRESSION: No suspicious uptake.
== END | disposition home or self-care (01) ==
LOC: RADPETMAIN 09:29
PROVIDERS: ATTEND Internal Medicine Hematology & Oncology
DX: C50.012 Malignant neoplasm of nipple and areola, left female breast (principal)
CPT/HCPCS: 78815; A9552

== ENCOUNTER → 2022-04-15 | Outpatient (CLI) | payer MEDICARE ==
--- NOTE | 2022-04-16 10:02 | MM ---
Reason for Exam: Screening (asymptomatic). Last mammogram was performed 1 year(s) and 2 month(s) ago. Patient History: Menarche at age 12. First Full-Term at age 21. Left ovary removed at age 36. Hysterectomy at age 36. Postmenopausal. Breast cancer, age 61. Previous chest radiation therapy at age 61. Previous chemotherapy at age 61. Estrogen for 5 years from age 36 until age 41. 2016, Mastectomy on the Left side. Core Biopsy on the Left side. 06/30/2011, Malignant Excisional Biopsy on the left side. 06/17/2011, Malignant Core Biopsy on the left side. 02/29/2004, Benign Stereotactic Core Biopsy on the left side. 2010, Radiation Therapy on the left side. Paternal grandmother had breast cancer. Maternal cousin had breast cancer. Film Views: Bilateral CC views were taken. Bilateral MLO views were taken. Prior Study Comparison: 06/23/2018 Bilateral Diagnostic Mammogram, [facility]. 06/29/2019 Right Diagnostic Mammogram, [facility]. 01/23/2021 Right Diagnostic Mammogram, [facility]. Tissue Density: There are scattered fibroglandular densities. Findings: Analyzed By CAD. There is no suspicious group of microcalcifications or new suspicious mass in either breast. Overall Assessment: Benign, BI-RAD 2 Management: Screening Mammogram of the right breast in 1 year. A clinical breast exam by your physician is recommended on an annual basis and results should be correlated with mammographic findings. Electronically signed and approved by: Jeremy Manuel M.D. Radiologis
== END | disposition home or self-care (01) ==
LOC: RADMAMWWP 08:14
PROVIDERS: ATTEND Internal Medicine Hematology & Oncology
DX: Z12.31 Encounter for screening mammogram for malignant neoplasm of breast (principal); Z78.0 Asymptomatic menopausal state; Z80.3 Family history of malignant neoplasm of breast; Z90.721 Acquired absence of ovaries, unilateral; Z92.3 Personal history of irradiation
CPT/HCPCS: 77067

== ENCOUNTER → 2022-05-29 | Outpatient (CLI) | payer MEDICARE ==
--- NOTE | 2022-05-30 06:40 | BD ---
EXAMINATION TYPE: Axial Bone Density DATE OF EXAM: 05/29/2022 COMPARISON: 02/05/2020 CLINICAL HISTORY: 72 years year old Female. 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, L Height: 64.5 IN Weight: 271 LBS RISK FACTORS HISTORY OF: Active: LIMITED Diet low in dairy products/other sources of calcium: YES Postmenopausal woman: AGE 48 Take estrogen and/or progesterone medications: NOT NOW How long: TOOK FOR APPROX 5 YEARS Lost more than 2 inches in height since high school: YES " MEDICATIONS: Thyroid Medications: YES Which medication: Levothyroxine How Lon YEARS Additional Medications: VIT D , CALCIUM, FAMOTIDINE, LEVOTHYROXINE, IBRANCE, ELIQUIS, ATORVASTATIN, L ETROZOLE, LOSARTAN, ASMANEX, MULTI VIT Additional History: BREAST CANCER WITH RADIATION, AND CHEMO EXAM MEASUREMENTS: Bone mineral densitometry was performed using the [employer] System. Bone mineral density as measured about the Lumbar spine is: ----- L1-L4(G/cm2): 1.310 T Score Values are as follows: ----- L1: 1.4 ----- L2: 1.5 ----- L3: 1.3 ----- L4: 0.3 ----- L1-L4: 1.1 Bone mineral density has: Decreased -5.1 % since study of: 02/05/2020 Bone mineral density about the R hip (g/cm2): 0.835 Bone mineral density about the L hip (g/cm2): 0.854 T Score values are as follows: -----R Neck: -1.5 -----L Neck: -1.3 -----R Total: -0.9 -----L Total: -0.7 Bone mineral density has: Increased 1.7% since study of: 02/05/2020 FRAX%s: The graph provided illustrates a 9.1 chance for a major osteoporotic fx and a 1.5 chance for the hips probability for fx in 10 years time. IMPRESSION: Osteopenia (T Score between -2.5 and -1). There is slightly increased risk of fracture and the patient may be considered for treatment. Re-Screen 2-5 years. NOTE: T-SCORE=SD OF THE YOUNG ADULT MEAN.
== END | disposition home or self-care (01) ==
LOC: RADBDWWP 16:17
PROVIDERS: ATTEND Internal Medicine Hematology & Oncology
DX: C50.012 Malignant neoplasm of nipple and areola, left female breast (principal); M85.89 Other specified disorders of bone density and structure, multiple sites; Z78.0 Asymptomatic menopausal state
CPT/HCPCS: 77080

== ENCOUNTER → 2023-04-27 | Outpatient (CLI) | payer MEDICARE ==
--- NOTE | 2023-04-28 07:48 | MM ---
Reason for Exam: Screening (asymptomatic). Last mammogram was performed 1 year(s) and 1 month(s) ago. Patient History: Menarche at age 12. First Full-Term at age 21. Left ovary removed at age 36. Hysterectomy at age 36. Postmenopausal. Patient has history of breast feeding. Breast cancer, age 61. Previous chest radiation therapy at age 61. Previous chemotherapy at age 61. Estrogen for 5 years from age 36 until age 41. 2016, Mastectomy on the Left side. Core Biopsy on the Left side. 06/30/2011, Malignant Excisional Biopsy on the left side. 06/17/2011, Malignant Core Biopsy on the left side. 02/29/2004, Benign Stereotactic Core Biopsy on the left side. 2010, Radiation Therapy on the left side. Paternal grandmother had breast cancer. Maternal cousin had breast cancer. Prior Study Comparison: 06/29/2019 Right Diagnostic Mammogram, [facility]. 01/23/2021 Right Diagnostic Mammogram, [facility]. 04/15/2022 Bilateral MG 3D scr zeenat unilateral w/cad, [facility]. Tissue Density: Right: The breast tissue is heterogeneously dense. This may lower the sensitivity of mammography. Findings: There is no suspicious group of microcalcifications or new suspicious mass in the right breast. Chronic nodularity in the right breast. Overall Assessment: Benign, BI-RAD 2 Management: Screening Mammogram of the right breast in 1 year. A clinical breast exam by your physician is recommended on an annual basis and results should be correlated with mammographic findings. Electronically signed and approved by: Den Cantu D.O.
== END | disposition home or self-care (01) ==
LOC: RADMAMWWP 13:24
PROVIDERS: ATTEND Internal Medicine Hematology & Oncology
DX: Z12.31 Encounter for screening mammogram for malignant neoplasm of breast (principal); Z80.3 Family history of malignant neoplasm of breast; Z78.0 Asymptomatic menopausal state
CPT/HCPCS: 77067

== ENCOUNTER → 2023-05-28 | Outpatient (CLI) | payer MEDICARE ==
--- NOTE | 2023-05-28 14:55 | PE ---
EXAMINATION TYPE: PET CT fusion skull to thigh DATE OF EXAM: 05/28/2023 CLINICAL INDICATION:Female, 73 years old with history of C50.012; TECHNIQUE: Following the intravenous administration of 11.0 mCi of F-18 FDG, whole body images are performed from the skull base to the midthigh. Images are reviewed on the computer in the coronal, a xial, and sagittal planes. Reconstructed rotating images are created on independent workstation and reviewed on the computer. A non-contrast CT is performed in conjunction with the PET scan. Glucose level 101 mg/dL COMPARISON: CT None, PET/CT 09/19/2021, bone scan 01/06/2023 FINDINGS: Mediastinal SUV mean is 2.5. Hepatic parenchyma SUV mean is 4.3. SKULL BASE AND NECK: No suspicious radiotracer activity. CHEST, MEDIASTINUM, AND HILAR REGION: No suspicious radiotracer activity. The left breast is surgical ly absent. There is no abnormal FDG activity or evidence for lymphadenopathy. ABDOMEN AND PELVIS: No suspicious radiotracer activity. MUSCULOSKELETAL STRUCTURES: No suspicious radiotracer activity. OTHER CT: Atherosclerosis of the arterial vascular nature. Right calcified thyroid nodule. The heart is mildly enlarged for size. There is moderate hiatal hernia. The gallbladder is surgically absent. IMPRESSION: Left anterior ribs do not demonstrate increased FDG activity. Findings likely represent post traumati c related uptake on bone scan. Correlate with history trauma. No suspicious radiotracer activity. No evidence for lymphadenopathy or abnormal uptake to suggest recurrence.
== END | disposition home or self-care (01) ==
LOC: RADPETMAIN 08:00
PROVIDERS: ATTEND Internal Medicine Hematology & Oncology
DX: C50.012 Malignant neoplasm of nipple and areola, left female breast (principal)
CPT/HCPCS: 78815; A9552

== ENCOUNTER → 2024-02-03 | Outpatient (CLI) | payer MEDICARE ==
--- NOTE | 2024-02-06 09:34 | PE ---
EXAMINATION TYPE: PET CT fusion skull to thigh DATE OF EXAM: 02/03/2024 CLINICAL INDICATION:Female, 73 years old with history of C50.012; TECHNIQUE: Following the intravenous administration of 11.5 mCi of F-18 FDG, whole body images are performed from the skull base to the midthigh. Images are reviewed on the computer in the coronal, a xial, and sagittal planes. Reconstructed rotating images are created on independent workstation and reviewed on the computer. A non-contrast CT is performed in conjunction with the PET scan. Glucose level 1 away mg/dL CT DLP: 972 mGycm, Automated exposure control for dose reduction was used. COMPARISON: CT 01/06/2023, PET/CT 05/28/2023, FINDINGS: Mediastinal SUV mean is 2.1. Hepatic parenchyma SUV mean is 3.7. SKULL BASE AND NECK: No suspicious radiotracer activity. CHEST, MEDIASTINUM, AND HILAR REGION: No suspicious radiotracer activity. The left breast is surgical ly absent. There is no abnormal FDG activity or evidence for lymphadenopathy. ABDOMEN AND PELVIS: No suspicious radiotracer activity. MUSCULOSKELETAL STRUCTURES: No suspicious radiotracer activity. Remote appearing fractures in the lef t anterior ribs. OTHER CT: Atherosclerosis of the arterial vascular nature. Right calcified thyroid nodule. The heart is mildly enlarged for size. There is moderate hiatal hernia. The gallbladder is surgically absent. IMPRESSION: No suspicious radiotracer activity. No evidence for lymphadenopathy or abnormal uptake to suggest rec urrence.
== END | disposition home or self-care (01) ==
LOC: RADPETMAIN 11:58
PROVIDERS: ATTEND Internal Medicine Hematology & Oncology
DX: C50.012 Malignant neoplasm of nipple and areola, left female breast (principal)
CPT/HCPCS: 78815; A9552

== ENCOUNTER → 2024-04-28 | Outpatient (CLI) | payer MEDICARE ==
--- NOTE | 2024-05-01 13:14 | MM ---
Reason for Exam: Screening (asymptomatic). Last screening mammogram was performed 12 month(s) ago. Patient History: Menarche at age 12. First Full-Term at age 21. Left ovary removed at age 36. Hysterectomy at age 36. Postmenopausal. Patient has history of breast feeding. Breast cancer, left, age 61. Previous chest radiation therapy at age 61. Previous chemotherapy at age 61. Estrogen for 5 years from age 36 until age 41. 2016, Mastectomy on the Left side. Core Biopsy on the Left side. 06/30/2011, Malignant Excisional Biopsy on the left side. 06/17/2011, Malignant Core Biopsy on the left side. 02/29/2004, Benign Stereotactic Core Biopsy on the left side. 2010, Radiation Therapy on the left side. Paternal grandmother had breast cancer. Maternal cousin had breast cancer. Prior Study Comparison: 01/23/2021 Right Diagnostic Mammogram, [facility]. 04/15/2022 Bilateral MG 3D scr zeenat unilateral w/cad, [facility]. 04/27/2023 Right MG 3D scr zeenat unilateral w/cad., [facility]. Tissue Density: There are scattered areas of fibroglandular density. Findings: Analyzed By CAD. There is no suspicious group of microcalcifications or new suspicious mass in either breast. Overall Assessment: Negative, BI-RAD 1 Management: Screening Mammogram of both breasts in 1 year. . Patient should continue monthly self-breast exams. A clinical breast exam by your physician is recommended on an annual basis. This exam should not preclude additional follow-up of suspicious palpable abnormalities. Note on Sandee scores and lifetime risk: 1. A Sandee score greater than 3% is considered moderate risk. If this is the case, consider specialist referral to assess eligibility for a risk reducing agent. 2. If overall lifetime risk for the development of breast cancer is 20% or higher, the patient may qualify for future screening with alternating mammogram and breast MRI. Electronically signed and approved by: Boston Moffett M.D. Radiologis
== END | disposition home or self-care (01) ==
LOC: RADMAMWWP 10:48
PROVIDERS: ATTEND Internal Medicine Hematology & Oncology
DX: Z12.31 Encounter for screening mammogram for malignant neoplasm of breast (principal); Z78.0 Asymptomatic menopausal state; Z80.3 Family history of malignant neoplasm of breast; C50.012 Malignant neoplasm of nipple and areola, left female breast; M85.9 Disorder of bone density and structure, unspecified; D63.8 Anemia in other chronic diseases classified elsewhere; D72.819 Decreased white blood cell count, unspecified; E11.9 Type 2 diabetes mellitus without complications; Z71.3 Dietary counseling and surveillance; Z71.89 Other specified counseling
CPT/HCPCS: 77067

== ENCOUNTER → 2024-05-30 | Outpatient (CLI) | payer MEDICARE ==
--- NOTE | 2024-06-04 16:36 | BD ---
EXAMINATION TYPE: Axial Bone Density DATE OF EXAM: 05/30/2024 CLINICAL HISTORY: 74 years old Female. ICD-10 CODE: M85.9 DISORDER OF BONE Height: 64 Weight: 274 PATIENT IN A WHEELCHAIR FRAX RISK QUESTIONS: Glucocorticoids (More than 3mos): yes, for asthma (Ex: prednisone, prednisolone, methylprednisolone, dexamethasone, and hydrocortisone). 3. Menopause before 45: no at 48 RISK FACTORS HISTORY OF: height loss, breast cancer, left breast, hx of radiation and chemo, left mastectomy MEDICATIONS: cholesterol meds, vit d, ibrance, eliquis, bp meds, multivitamin, diabetic meds, asthma steroids, Thyroid Medications: yes, for about 7 yrs, synthroid product EXAM MEASUREMENTS: Bone mineral densitometry was performed using the [employer] System. Bone mineral density as measured about the Lumbar spine is: ----- L1-L4(G/cm2): 1.282 T Score Values are as follows: ----- L1: 1.0 ----- L2: 0.9 ----- L3: 1.1 ----- L4: 0.3 ----- L1-L4: 0.8 Z Score Values are as follows: ----- L1: 1.6 ----- L2: 1.5 ----- L3: 1.7 ----- L4: 0.9 ----- L1-L4: 1.4 Bone mineral density has: Decreased -2.1% since study of: 05.29.2022 Bone mineral density about the R hip (g/cm2): 0.916 Bone mineral density about the L hip (g/cm2): 0.936 T Score values are as follows: -----R Neck: -1.3 -----L Neck: -1.1 -----R Total: -0.7 -----L Total: -0.6 Z Score values are as follows: -----R Neck: -0.1 -----L Neck: 0.1 -----R Total: 0.2 -----L Total: 0.4 Bone mineral density has: Increased 1.8% since study of: 05.29.2022 FRAX%s: The graph provided illustrates a 14.2% chance for a major osteoporotic fx and a 2.7% chance f or the hips probability for fx in 10 years time. IMPRESSION: Osteopenia (T Score between -2.5 and -1). There is slightly increased risk of fracture and the patient may be considered for treatment. Re-Screen 2-5 years. NOTE: T-SCORE=SD OF THE YOUNG ADULT MEAN.
== END | disposition home or self-care (01) ==
LOC: RADBDWWP 10:52
PROVIDERS: ATTEND Internal Medicine Hematology & Oncology
DX: M85.89 Other specified disorders of bone density and structure, multiple sites (principal); C50.012 Malignant neoplasm of nipple and areola, left female breast; D63.8 Anemia in other chronic diseases classified elsewhere; D72.819 Decreased white blood cell count, unspecified; E11.9 Type 2 diabetes mellitus without complications; Z71.89 Other specified counseling; Z71.3 Dietary counseling and surveillance; Z90.12 Acquired absence of left breast and nipple; Z78.0 Asymptomatic menopausal state
CPT/HCPCS: 77080

== ENCOUNTER → 2024-08-14 | Outpatient (CLI) | payer MEDICARE ==
[2024-08-14 15:18] LABS: ALT 23 U/L (8-44); AST 22 U/L (13-35); Albumin 4.1 g/dL (3.8-4.9); Albumin/Globulin Ratio 1.52 Ratio (1.60-3.17); Alkaline Phosphatase 126 U/L (41-126); BUN/Creat Ratio 13.12 Ratio (12.00-20.00); Calcium 9.3 mg/dL (8.7-10.3); Carbon Dioxide 23.1 mmol/L (21.6-31.8); Chloride 105 mmol/L (96-109); Chol/HDL Ratio 2.34 Ratio; Globulin 2.7 g/dL (1.6-3.3); Glucose 122 mg/dL (70-110); LDL Cholesterol,Calculated 57.1 mg/dL (0.0-131.0); Potassium 4.4 mmol/L (3.5-5.5); Sodium 142 mmol/L (135-145); Total Bilirubin 0.4 mg/dL (0.3-1.2); Total Protein 6.8 g/dL (6.2-8.2)
== END | disposition home or self-care (01) ==
LOC: LABWHC1 11:09
PROVIDERS: ATTEND Internal Medicine Interventional Cardiology
DX: E78.2 Mixed hyperlipidemia (principal)
CPT/HCPCS: 36415; 80053; 80061

== ENCOUNTER → 2024-09-20 | Outpatient (CLI) | payer MEDICARE ==
--- NOTE | 2024-09-20 17:42 | XR ---
EXAMINATION TYPE: XR chest 2V DATE OF EXAM: 09/20/2024 COMPARISON: 04/24/2014 INDICATION: Cough and shortness of breath fatigue TECHNIQUE: Frontal and lateral views of the chest are obtained. FINDINGS: The heart size is normal. The pulmonary vasculature is normal. The lungs are clear. IMPRESSION: 1. No acute pulmonary process. [facility], Workstation: [facility], 09/20/2024 5:39 PM
== END | disposition home or self-care (01) ==
LOC: RADXRYALE 15:30
PROVIDERS: ATTEND Physician Assistant Medical
CPT/HCPCS: 71046

== ENCOUNTER → 2025-05-09 | Outpatient (CLI) | payer MEDICARE ==
--- NOTE | 2025-05-09 13:20 | MM ---
Reason for Exam: Hx of breast cancer, mastectomy. Last screening mammogram was performed 12 month(s) ago. Patient History: Menarche at age 12. First Full-Term at age 21. Left ovary removed at age 36. Hysterectomy at age 36. Postmenopausal. Patient has history of breast feeding. Breast cancer, left, age 61. Previous chest radiation therapy at age 61. Previous chemotherapy at age 61. Estrogen for 5 years from age 36 until age 41. 2016, Mastectomy on the Left side. Core Biopsy on the Left side. 06/30/2011, Malignant Excisional Biopsy on the left side. 06/17/2011, Malignant Core Biopsy on the left side. 02/29/2004, Benign Stereotactic Core Biopsy on the left side. 2010, Radiation Therapy on the left side. Paternal grandmother had breast cancer. Maternal cousin had breast cancer. Prior Study Comparison: 04/15/2022 Bilateral MG 3D scr zeenat unilateral w/cad, [facility]. 04/27/2023 Right MG 3D scr zeenat unilateral w/cad., [facility]. 04/28/2024 Bilateral MG 3D screening mammo w/cad, [facility]. Tissue Density: Right: There are scattered areas of fibroglandular density. Findings: Chronic circumscribed low density nodularity. Better seen on 3-D images. There is no suspicious group of microcalcifications or new suspicious mass in either breast. Overall Assessment: Benign, BI-RAD 2 Management: Screening Mammogram of the right breast in 1 year. Patient should continue monthly self-breast exams. A clinical breast exam by your physician is recommended on an annual basis. This exam should not preclude additional follow-up of suspicious palpable abnormalities. [facility], , 05/09/2025 1:16 PM. Electronically signed and approved by: Didier Wolff M.D. Radiologist
== END | disposition home or self-care (01) ==
LOC: RADMAMWWP 10:26
PROVIDERS: ATTEND Internal Medicine Hematology & Oncology
DX: Z12.31 Encounter for screening mammogram for malignant neoplasm of breast (principal); R92.323 Mammographic fibroglandular density, bilateral breasts; Z85.3 Personal history of malignant neoplasm of breast; Z80.3 Family history of malignant neoplasm of breast; Z78.0 Asymptomatic menopausal state
CPT/HCPCS: 77067